=== PATIENT | female | born 1965 | race African-American/Black ===

== ENCOUNTER 2020-09-06 13:08 | Outpatient (NON) | payer BC, SELFPAY ==
[2020-09-06 22:31] LABS: SARS-CoV-2 RNA PCR Positive
== END 2020-09-06 13:09 ==
PROVIDERS: PCP Emergency Medicine; Visit Provider Emergency Medicine
DX: U07.1 COVID-19 (principal)
CPT/HCPCS: 87635; C9803; U0003

== ENCOUNTER 2022-02-28 12:28 | Emergency (ER) | payer BC, SELFPAY ==
[2022-02-28] VITALS (7 sets, daily range): BP systolic 138–174; BP diastolic 88–104; PULSE 78–97; RESP 16–18; O2SAT 95–100
--- NOTE | ~2022-02-28 | XR_ITS ---
EXAMINATION: XR chest 1V portable EXAM DATE: 02/28/2022 13:00 INDICATION: Dyspnea. TECHNIQUE: Portable AP frontal chest x-ray was obtained. There is no prior study for comparison. FINDINGS: Elevated left hemidiaphragm. No confluent consolidation, pneumothorax or pleural effusion s uspected. Cardiomediastinal silhouette is normal. There are no osseous abnormalities identified. IMPRESSION: Elevated left hemidiaphragm. No focal airspace disease. Reviewed, dictated and finalized at location A.
[2022-02-28 12:33] LABS: Glucose Point of Care 490 mg/dl (65-105)
--- NOTE | 2022-02-28 12:39 | ECG_ITS ---
Measurements Intervals [place] Rate: 93 P: 39 MS: 168 QRS: 19 QRSD: 82 T: 64 QT: 361 QTc: 449 Interpretive Statements SINUS RHYTHM POSSIBLE LEFT ATRIAL ENLARGEMENT [-0.1mV P WAVE IN V1/V2] COMPARED TO ECG 03/29/2019 14:48:58 NO SIGNIFICANT CHANGE Electronically Signed On 03-01-2022 6:54:04 CDT by Dora Sharp M.D.
--- NOTE | 2022-02-28 12:40 | ED.GENADULT ---
HPI - General Adult General Chief complaint: Recheck/Abnormal Lab/Rx Stated complaint: high blood sugar Time Seen by Provider: 02/28/22 12:31 Source: RN notes reviewed History of Present Illness HPI narrative: Patient presents emergency department from urgent care for hyperglycemia. Patient states that her blood sugars were running high today states he does not take them regularly. The patient states that she is post be on Metformin but is only been intermittently taking over the past several days she does not like the way it makes her feel she denies having any fevers or chills she states that she does dizzy and has some occasional feelings of shortness of breath she denies any chest pain abdominal pain Related Data Allergies Allergy/AdvReac Type Severity Reaction Status Date / Time aspirin Allergy Mild VOMITING Verified 02/28/22 12:33 oxycodone Allergy Mild VOMITING Verified 02/28/22 12:33 propoxyphene Allergy Mild VOMITING Verified 02/28/22 12:33 ASPERTENE Allergy Unknown MIGRAINE Uncoded 07/11/18 09:17 Review of Systems Review of Systems: Gen.: Denies fevers or chills Eyes: Denies eye pain or visual change ENT: Denies congestion Respiratory: Ports intermittent shortness of breath CV: Denies chest pain or palpitations GI: Denies abdominal pain nausea, emesis or diarrhea Musculoskeletal: Denies back pain or muscle pain Neuro: Denies numbness, tingling, weakness or focal weakness reports dizziness Skin: Denies rash Endocrine: See HPI Except as documented, all other systems reviewed and negative [facility]LY [facility] Past Medical History Medical History Diabetes mellitus Family History Family History Sibling Family history of malignant neoplasm of breast in first degree relative Hypertension, Onset Age: 59 Family history of thoracic aortic aneurysm, Onset Age: 59 Patient's brother is , Onset Age: 59 Mother Hypertension Family history of cardiovascular disease, Onset Age: 87 Father Malignant neoplasm of prostate Other Cerebrovascular accident Diabetes mellitus Family history of arthritis Family history of malignant neoplasm Social History Social History Smoking status: Never smoker Second hand tobacco smoke exposure: No Alcohol intake: never Exam Narrative: APPEARANCE: No acute distress, nontoxic, resting in bed EYES: EOMI HEENT: Normocephalic, atraumatic, OMM RESPIRATORY: No respiratory distress Clear to auscultation bilaterally with no rhonchi wheezing or rales. CARDIOVASCULAR: Regular rate and rhythm without murmurs rubs or gallops. ABDOMINAL: Soft, nontender, nondistended, no rebound or guarding MUSCULOSKELETAl: Moves all extremities. No clubbing, cyanosis or edema. NEURO: Awake and alert. Following commands, speech normal, no focal deficits SKIN:: Warm, dry. No rashes lesions or abrasions PSYCHIATRIC: Normal affect/mood, Course Course Emergency Course: Patient was able to get her medications and she is on Metformin 1000 mg ER at night she states that she does not like taking this as it does cause her to have diarrhea when she is at work and I discussed with the patient taking her medications and I will have her try to take Imodium to see if this does help. Discussed with patient need to take her medications regularly as prescribed Patient will get up and walk to the restroom with no difficulty Discussed with patient results of workup and diagnosis. Discussed need for follow-up with primary care, proper use of medication, and reasons to return to the emergency department. Patient understands and agrees to current treatment plan Vital Signs Vital signs: Vital Signs Respiratory Rate 17 02/28/22 12:31 Pulse Rate 86 02/28/22 15:22 Respiratory Rate 18 02/28/22 15:22 Blood Pressure 153/89 H 04/0
[2022-02-28] MEDS: SODIUM CHLORIDE 0.9% IV 1,000 ML 999 ML IV CONT ×2 (12:53→13:14)
--- NOTE | 2022-02-28 12:55 | PC.NURSE ---
Pt reports dizziness, excessive urination, SOB, and fatigue. States she does not take her metformin consistently due to unpleasant GI side effects. Pt states her s/s began this am. IVF infusing.
[2022-02-28 12:59] LABS: Basophils Percent Auto 0.6 % (0.2-1.2); Eosinophils Percent Auto 0.6 % (0-4.4); Hemoglobin 14.5 g/dL (12.0-15.0); Immature Granulocyte Absolute 0.02 K/mm3 (0.00-0.031); Immature Granulocyte Percent A 0.4 % (0-0.5); Immature Platelet Fraction Pct 8.5 % (0.9-11.2); Lymphocytes Absolute Auto 1.58 K/mm3 (0.9-3.2); Lymphocytes Percent Auto 31.4 % (18.3-44.2); Mean Corpuscular HGB Conc 32.2 g/dl (32-36); Mean Corpuscular Hemoglobin 27.3 pg (26-34); Mean Corpuscular Volume 84.7 fl (80-100); Mean Platelet Volume 13.3 fl (7.4-10.4); Monocytes Absolute Auto 0.3 K/mm3 (0.1-0.6); Monocytes Percent Auto 5.2 % (2.6-8.5); Neutrophils Absolute Auto 3.1 K/mm3 (1.3-6.7); Neutrophils Percent Auto 61.8 % (45.5-73.1); Platelet Count Result 198 k/mm3 (150-375); Red Blood Count 5.31 M/mm3 (4.2-5.4); Red Cell Distribution Width 13.8 % (11.5-14.5)
[2022-02-28 13:01] LABS: Alanine Aminotransferase 21 U/L (4-35); Albumin Level 4.1 g/dL (3.5-5.1); Alkaline Phosphatase 89 U/L (38-126); Anion Gap 10 mmol/L (8-16); Aspartate Amino Transferase 24 U/L (14-36); Bilirubin,Total 0.5 mg/dL (0.2-1.3); Blood Urea Nitrogen 12 mg/dL (7-17); Calcium 8.9 mg/dL (8.4-10.2); Carbon Dioxide 27 mmol/L (22-30); Chloride 97 mmol/L (98-107); Estimated CRCL calculation 108 ml/min; Estimated Glomerular Filt Rate > 60; Glucose 482 mg/dL (65-110); Magnesium 1.5 mg/dL (1.6-2.3); Phosphorus 3.7 mg/dL (2.5-4.5); Potassium 3.6 mmol/L (3.4-5.0); Sodium 134 mmol/L (137-145)
[2022-02-28 13:03] LABS: Beta-Hydroxybutyrate/Acetoacetate 0.11 mmol/L (0.02-0.27)
[2022-02-28 13:07] LABS: Add Urine Microscopic? YES; Appearance Urine Cloudy (Clear); Bilirubin Urine Negative (Negative); Blood Urine 1+ (Negative); Color Urine Yellow (Yellow); Glucose Urine UA 3+ mg/dL (Negative); Ketones Urine Negative (Negative); Leukocyte Esterase Ur Trace LEU/UL (Negative); Mucus Urine Rare /lpf; Nitrate Urine Negative (Negative); Protein Urine Negative (Negative); Squamous Epithelial Cell Urine Moderate /hpf (Few); Urobilinogen Urine Negative mg/dL (<2.0); WBC Urine 0-3 /hpf
[2022-02-28 13:10] LABS: Specific Grav Ur 1.033 (1.001-1.035)
[2022-02-28] MEDS: MAGNESIUM SULF 2 GM/WATER 50ML 2 GM/50 ML BAG IVPB (13:14)
[2022-02-28] MEDS: INSULIN ASPART (*BKC) 100 UNITS/ML 6 UNITS SUB-Q (13:18)
[2022-02-28 14:17] LABS: Glucose Point of Care 399 mg/dl (65-105)
[2022-02-28 15:18] LABS: Glucose Point of Care 318 mg/dl (65-105)
== END 2022-02-28 15:48 | disposition home or self-care (01) ==
PROVIDERS: Emergency Provider Emergency Medicine; PCP Family Medicine
DX: E11.65 Type 2 diabetes mellitus with hyperglycemia (principal); E83.42 Hypomagnesemia; T38.3X6A Underdosing of insulin and oral hypoglycemic [antidiabetic] drugs, initial encounter; Z91.128 Patient's intentional underdosing of medication regimen for other reason; Z79.84 Long term (current) use of oral hypoglycemic drugs
CPT/HCPCS: 36415; 71045; 80053; 81001; 82010; 82948; 83735; 84100; 85025; 85055; 93005; 96361; 96365; 99284; J1815; J3475; J7030

== ENCOUNTER 2022-09-01 14:35 | Emergency (ER) | payer BC, SELFPAY ==
--- NOTE | ~2022-09-01 | US_ITS ---
US breast LT limited 09/01/2022 16:23 Indication: Left breast pain Procedure: High-resolution Limited ultrasound of the left breast Comparison: No prior studies for comparison. Findings: Normal heterogeneous echotexture in the area of left breast pain. No discrete solid or cyst ic mass. Impression: 1: Normal limited ultrasound of the left breast. No sonographic evidence for malignancy. Routine yearly screening mammogram and regular clinical breast examination are recommended. BI-RADS CATEGORY 1 - NEGATIVE Reviewed, dictated and finalized at location A. Impression: 1: Normal limited ultrasound of the left breast. No sonographic evidence for ma lignancy. Routine yearly screening mammogram and regular clinical breast examination are recommended. BI-RADS CATEGORY 1 - NEGATIVE
[2022-09-01 14:38] VITALS: BP 166/90; PULSE 97; RESP 17; TEMP 36.3; O2SAT 100
--- NOTE | 2022-09-01 15:52 | ED.GENADULT ---
HPI - General Adult General Chief complaint: Unspecified <LANI Cheung Last Filed: 09/01/22 19:09> Stated complaint: pains in left breast <LANI Cheung Last Filed: 09/01/22 19:09> Time Seen by Provider: 09/01/22 15:21 <LANI Cheung Last Filed: 09/01/22 19:09> Source: patient <LANI Cheung Last Filed: 09/01/22 19:09> Mode of arrival: ambulatory <LANI Cheung Last Filed: 09/01/22 19:09> Limitations: no limitations <LANI Cheung Last Filed: 09/01/22 19:09> History of Present Illness HPI narrative: Patient is a 57-year-old female who presents to the ED with report of left breast pain. Patient reports having a pain in her left breast from her medial breast to below her nipple. She states the pain has been intermittent over the last 2 weeks. She describes the pain as a shooting pain. She had more frequent episodes of the pain today, which prompted her presentation. Pain can be improved by supporting breast with her hand. Patient has had mammograms in the past which have all been normal. She states she is due for another this year. Patient has not tried anything for pain. Denies any nipple discharge, fevers, rash, wounds, warmth, redness to left breast, chest pain, difficulty breathing, pleuritic pain. <Adalgisa Murcia PA-C - Last Filed: 09/01/22 19:09> Related Data Allergies/adverse reactions: Allergies Allergy/AdvReac Type Severity Reaction Status Date / Time aspirin Allergy Mild VOMITING Verified 02/28/22 12:33 oxycodone Allergy Mild VOMITING Verified 02/28/22 12:33 propoxyphene Allergy Mild VOMITING Verified 02/28/22 12:33 ASPERTENE Allergy Unknown MIGRAINE Uncoded 07/11/18 09:17 <LANI Cheung Last Filed: 09/01/22 19:09> Review of Systems Review of Systems: CONSTITUTIONAL: Denies fever, chills, or sweats. CARDIOVASCULAR: Denies chest pain. RESPIRATORY: Denies cough or dyspnea. GASTROINTESTINAL: Denies abdominal pain, nausea, vomiting. SKIN: Denies rash, wounds, redness to L breast. MUSCULOSKELETAL: Reports left breast pain. NEUROLOGIC: Denies tingling, numbness, or weakness. <Adalgisa Murcia PA-C - Last Filed: 09/01/22 19:09> All systems reviewed & are unremarkable except as noted in HPI and below <Adalgisa Murcia PA-C - Last Filed: 09/01/22 19:09> PMFSH Past Medical History Medical History: Medical History Diabetes mellitus Hepatic steatosis HTN (hypertension), benign Mixed hyperlipidemia <Adalgisa Murcia PA-C - Last Filed: 09/01/22 19:09> Surgical History Surgical History: Surgical History (Updated 09/01/22 @ 15:56 by Adalgisa Murcia PA-C) History of cholecystectomy History of colonoscopy <Adalgisa Murcia PA-C - Last Filed: 09/01/22 19:09> Family History Family History: Family History Sibling Family history of malignant neoplasm of breast in first degree relative Hypertension, Onset Age: 59 Family history of thoracic aortic aneurysm, Onset Age: 59 Patient's brother is , Onset Age: 59 Mother Hypertension Family history of cardiovascular disease, Onset Age: 87 Father Malignant neoplasm of prostate Other Cerebrovascular accident Diabetes mellitus Family history of arthritis Family history of malignant neoplasm <Adalgisa Murcia PA-C - Last Filed: 09/01/22 19:09> Social History Social History: Social History Smoking status: Never smoker Second hand tobacco smoke exposure: No Alcohol intake: never <Adalgisa Murcia PA-C - Last Filed: 09/01/22 19:09> Exam Narrative: GENERAL: Well appearing, well-nourished, non-toxic, in no acute distress. HEAD: Normoce
--- NOTE | 2022-09-01 17:31 | ECG_ITS ---
Measurements Intervals [place] Rate: 68 P: 40 SD: 163 QRS: 17 QRSD: 83 T: 69 QT: 393 QTc: 420 Interpretive Statements SINUS RHYTHM POSSIBLE LEFT ATRIAL ENLARGEMENT [-0.1mV P WAVE IN V1/V2] COMPARED TO ECG 02/28/2022 12:41:20 NO SIGNIFICANT CHANGE Electronically Signed On 09-02-2022 14:50:29 CDT by Rohan Palacios M.D.
[2022-09-01] MEDS: IBUPROFEN 600 MG TABLET PO (17:59)
== END 2022-09-01 18:41 | disposition home or self-care (01) ==
PROVIDERS: Emergency Provider Emergency Medicine; PCP Family Medicine
DX: N64.4 Mastodynia (principal); E11.9 Type 2 diabetes mellitus without complications; I10 Essential (primary) hypertension; E78.2 Mixed hyperlipidemia; R94.31 Abnormal electrocardiogram [ECG] [EKG]
CPT/HCPCS: 76642; 93005; 99284; A9270

== ENCOUNTER 2022-10-02 13:00 | Outpatient (CLI) | payer BC, SELFPAY ==
--- NOTE | ~2022-10-02 | MM_ITS ---
EXAMINATION: MM diagnostic yohana BI w yu HISTORY: Bilateral breast pain TECHNIQUE: ML, MLO and CC 3-D tomosynthesis images of both breasts were performed and synthetic 2-D i mages were generated. CAD analysis was submitted and interpreted. COMPARISON: 09/01/2022 Limited left breast ultrasound BREAST PARENCHYMAL COMPOSITION: There are scattered areas of fibroglandular density. FINDINGS: No suspicious mass or architectural distortion, malignant calcification, skin thickening or retraction is detected. IMPRESSION: 1. No mammographic evidence for malignancy 2. Routine mammographic screening is recommended BI-RADS Category 1: Negative Reviewed, dictated and finalized at location A. REMOVER
== END 2022-10-02 13:01 | disposition home or self-care (01) ==
LOC: ANHIMG 13:01
PROVIDERS: PCP Family Medicine; Visit Provider Emergency Medicine
DX: Z12.31 Encounter for screening mammogram for malignant neoplasm of breast (principal); N64.4 Mastodynia
CPT/HCPCS: 77062; 77066; G0279

== ENCOUNTER 2022-10-06 15:55 | Emergency (ER) | payer BC, SELFPAY ==
[2022-10-06] VITALS (15 sets, daily range): BP systolic 135–162; BP diastolic 75–109; PULSE 72–90; RESP 14–18; TEMP 36.6; O2SAT 92–100
[2022-10-06 16:16] LABS: Glucose Point of Care > 500 mg/dl (65-105)
[2022-10-06 16:40] LABS: Basophils Percent Auto 0.7 % (0.2-1.2); Eosinophils Percent Auto 0.5 % (0-4.4); Hematocrit 43.9 % (37.0-47.0); Hemoglobin 14.7 g/dL (12.0-15.0); Immature Granulocyte Absolute 0.02 K/mm3 (0.00-0.031); Immature Granulocyte Percent A 0.4 % (0-0.5); Immature Platelet Fraction Pct 9.2 % (0.9-11.2); Lymphocytes Absolute Auto 1.44 K/mm3 (0.9-3.2); Mean Corpuscular HGB Conc 33.5 g/dl (32-36); Mean Corpuscular Hemoglobin 27.6 pg (26-34); Mean Corpuscular Volume 82.5 fl (80-100); Mean Platelet Volume 13.5 fl (7.4-10.4); Monocytes Absolute Auto 0.3 K/mm3 (0.1-0.6); Monocytes Percent Auto 5.1 % (2.6-8.5); Neutrophils Absolute Auto 3.7 K/mm3 (1.3-6.7); Neutrophils Percent Auto 67.3 % (45.5-73.1); Platelet Count Result 202 k/mm3 (150-375); Red Blood Count 5.32 M/mm3 (4.2-5.4); Red Cell Distribution Width 13.6 % (11.5-14.5); White Blood Count 5.5 K/mm3 (4.5-10.0)
[2022-10-06 16:54] LABS: Beta-Hydroxybutyrate/Acetoacetate 0.12 mmol/L (0.02-0.27)
[2022-10-06 17:01] LABS: Alanine Aminotransferase 23 U/L (6-35); Albumin Level 4.1 g/dL (3.5-5.1); Alkaline Phosphatase 92 U/L (38-126); Anion Gap 10 mmol/L (8-16); Aspartate Amino Transferase 23 U/L (14-36); Bilirubin,Total 0.5 mg/dL (0.2-1.3); Blood Urea Nitrogen 16 mg/dL (7-17); Calcium 8.6 mg/dL (8.4-10.2); Carbon Dioxide 25 mmol/L (22-30); Chloride 99 mmol/L (98-107); Estimated CRCL calculation 140 ml/min; Estimated Glomerular Filt Rate > 60; Glucose 531 mg/dL (65-110); Magnesium 1.7 mg/dL (1.6-2.3); Phosphorus 3.6 mg/dL (2.5-4.5); Potassium 4.1 mmol/L (3.4-5.0); Sodium 134 mmol/L (137-145)
--- NOTE | 2022-10-06 17:55 | ED.RECABL ---
HPI - Recheck/Abnormal Lab/Rx General Chief Complaint: Recheck/Abnormal Lab/Rx Stated Complaint: high blood sugar Time Seen by Provider: 10/06/22 16:24 History of Present Illness HPI narrative: Patient is a 57-year-old female who presents ER with elevated blood sugars. Patient has not taken her new diabetes medication for the last 4 days because she supposed to take it on an empty stomach but when she wakes up she is too hungry and she has to eat. She has no fevers or chills or sweats. She is having no abdominal pain or nausea or vomiting. No new confusion. Her doctor told her she should be evaluated since her blood sugars have been running in the 400s. Related Data Allergies Allergy/AdvReac Type Severity Reaction Status Date / Time aspirin Allergy Mild VOMITING Verified 02/28/22 12:33 oxycodone Allergy Mild VOMITING Verified 02/28/22 12:33 propoxyphene Allergy Mild VOMITING Verified 02/28/22 12:33 ASPERTENE Allergy Unknown MIGRAINE Uncoded 07/11/18 09:17 Review of Systems Review of Systems: All systems reviewed & are unremarkable except as noted in HPI and below Constitutional: Constitutional: Denies chills, Denies fatigue and Denies fever(s) ENT: Denies nasal congestion and Denies sore throat Cardiovascular: Cardiovascular: Denies chest pain, Denies rapid heart rate and Denies radiating jaw, neck or arm pain Respiratory: Respiratory: Denies cough and Denies dyspnea Gastrointestinal: Gastrointestinal: Denies abdominal pain, Denies nausea and Denies vomiting Genitourinary: Genitourinary: Denies nocturia, Denies dysuria and Denies flank pain [facility] Past Medical History Medical History Diabetes mellitus Hepatic steatosis HTN (hypertension), benign Mixed hyperlipidemia Surgical History Surgical History (Updated 09/01/22 @ 15:56 by Adalgisa Murcia PA-C) History of cholecystectomy History of colonoscopy Family History Family History Sibling Family history of malignant neoplasm of breast in first degree relative Hypertension, Onset Age: 59 Family history of thoracic aortic aneurysm, Onset Age: 59 Patient's brother is , Onset Age: 59 Mother Hypertension Family history of cardiovascular disease, Onset Age: 87 Father Malignant neoplasm of prostate Other Cerebrovascular accident Diabetes mellitus Family history of arthritis Family history of malignant neoplasm Social History Social History Smoking status: Never smoker Second hand tobacco smoke exposure: No Alcohol intake: never Exam Narrative: GENERAL: Well-appearing, well-nourished, and in no acute distress. HEAD: Normocephalic, atraumatic. CHEST: Clear to auscultation. No respiratory distress. HEART: Regular rate and rhythm. Normal peripheral pulses. ABDOMEN: Soft, nontender, nondistended. EXTREMITIES: Normal range of motion. No edema. SKIN: Warm, dry, no rash. NEURO: Alert and oriented x3. PSYCH: Normal mood and affect. Course Course Emergency Course: Patient hydrated. Discharge home. Recommend she take her medication if she wants to control her hyperglycemia. Offered strategies which to take her medication properly. Vital Signs Vital signs: Vital Signs Temperature 97.9 F 10/06/22 16:03 Pulse Rate 90 10/06/22 16:03 Respiratory Rate 14 10/06/22 16:03 Blood Pressure 155/89 H 10/06/22 16:03 Pulse Oximetry 99 10/06/22 16:03 Oxygen Delivery Room Air 10/06/22 16:03 Temperature 97.9 F 10/06/22 16:03 Pulse Rate 75 10/06/22 18:17 Respiratory Rate 17 10/06/22 18:17 Blood Pressure 154/84 H 10/06/22 18:17 Pulse Oximetry 99 10/06/22 18:17 Oxygen Delivery Room Air 10/06/22 16:03 MDM - Recheck/Abnormal Lab/Rx Lab Data Result diagrams: 10/06/22 16:30 10/06/22
[2022-10-06] MEDS: SODIUM CHLORIDE 0.9% IV 1,000 ML 999 ML IV CONT (18:17)
--- NOTE | 2022-10-06 19:24 | PC.NURSE ---
Per Pt, she checked her blood sugar on her free style and it was 362. Will notified Dr Mc of the new POC.
== END 2022-10-06 19:48 | disposition home or self-care (01) ==
PROVIDERS: Emergency Provider Emergency Medicine; PCP Family Medicine
DX: E11.65 Type 2 diabetes mellitus with hyperglycemia (principal); I10 Essential (primary) hypertension; T38.3X6A Underdosing of insulin and oral hypoglycemic [antidiabetic] drugs, initial encounter; Z91.138 Patient's unintentional underdosing of medication regimen for other reason; E78.2 Mixed hyperlipidemia
CPT/HCPCS: 36415; 80053; 82010; 82948; 83735; 84100; 85025; 85055; 96360; 99283; J7030

== ENCOUNTER 2024-02-13 18:57 | Emergency (ER) | payer OTHER, SELFPAY ==
--- NOTE | ~2024-02-13 | XR_ITS ---
EXAM: XR wrist LT min 3V DATE: 02/13/2024 19:26 HISTORY: left wrist pain . COMPARISON: None available. FINDINGS: Normal mineralization. No acute fracture or dislocation. Old ulnar styloid fracture fragme nt. No lytic or blastic lesion. Ulnar negative variance. Degenerative change at the DRUJ. No erosion or periosteal change. Soft tissue swelling about the wrist. IMPRESSION: No acute osseous finding in the left wrist. Reviewed, dictated and finalized at location K.
[2024-02-13 18:58] VITALS: BP 200/97; PULSE 98; RESP 19; TEMP 36.5; O2SAT 97
--- NOTE | 2024-02-13 19:21 | ED.UPPEXIN ---
HPI - Extremity Injury (Upper) General Chief Complaint: Extremity Injury, Upper Stated Complaint: left wrist pain Time Seen by Provider: 02/13/24 19:13 Source: patient Mode of arrival: ambulatory Limitations: no limitations History of Present Illness HPI narrative: This is a 58 year old female that presents to the ER for left wrist pain. Ongoing over the last 4 days. No known injury or trauma. Patient has not taken anything for pain. Reports some swelling to the area. Reports decreased ROM due to pain. Denies fevers, erythema or numbness. Related Data Home Medications Medication Instructions Recorded Confirmed semaglutide 14 mg tablet (Rybelsus) 14 mg PO DAILY 03/31/23 03/31/23 Allergies Allergy/AdvReac Type Severity Reaction Status Date / Time aspirin Allergy Mild VOMITING Verified 02/13/24 19:08 oxycodone Allergy Mild VOMITING Verified 02/13/24 19:08 propoxyphene Allergy Mild VOMITING Verified 02/13/24 19:08 maple surpy Allergy Severe Vomiting Uncoded 02/13/24 19:08 ASPERTENE Allergy Unknown MIGRAINE Uncoded 02/13/24 19:08 Review of Systems Review of Systems: CONSTITUTIONAL: Denies fever MUSCULOSKELETAL: Reports joint pain, and myalgia. NEUROLOGIC: Denies numbness All systems reviewed & are unremarkable except as noted in HPI and below PMFSH Past Medical History Medical History (Updated 02/13/24 @ 20:56 by Mariola Soares PA-C) Diabetes mellitus Hepatic steatosis HTN (hypertension), benign Mixed hyperlipidemia Surgical History Surgical History (Updated 03/31/23 @ 08:50 by Veronica Downey MA) Delivery by section History of cholecystectomy History of colonoscopy History of hysteroscopy fibroids removed Family History Family History Sibling Family history of malignant neoplasm of breast in first degree relative Hypertension, Onset Age: 59 Family history of thoracic aortic aneurysm, Onset Age: 59 Patient's brother is , Onset Age: 59 Mother Hypertension Family history of cardiovascular disease, Onset Age: 87 Father Malignant neoplasm of prostate Other Cerebrovascular accident Diabetes mellitus Family history of arthritis Family history of malignant neoplasm Social History Social History (Updated 03/31/23 @ 08:51 by Veronica Downey MA) Smoking status: Never smoker Second hand tobacco smoke exposure: No Alcohol intake: never Substance use: never Substance use type: does not use Living arrangements: with family Occupation/Education: occupation Gender identity (if verbalized by the patient): Female Sexual Orientation (if Verbalized by the Patient): Straight or Heterosexual Exam Narrative: GENERAL: Well-appearing, well-nourished, and in no acute distress. HEAD: Normocephalic, atraumatic. EYES: EOMI. EXTREMITIES: Decreased active ROM in the left wrist due to pain. No erythema or warmth. Mild edema about the left wrist dorsal surface. Normal radial pulse. Normal sensation SKIN: Warm, dry, no rash. NEURO: No focal deficits. Alert and oriented x3. PSYCH: Normal mood and affect Course Course Emergency Course: Patient updated on her workup and agrees with plan of care Vital Signs Vital signs: Vital Signs Temperature 97.7 F 02/13/24 18:58 Pulse Rate 98 02/13/24 18:58 Respiratory Rate 19 02/13/24 18:58 Blood Pressure 200/97 H 02/13/24 18:58 Pulse Oximetry 97 02/13/24 18:58 Oxygen Delivery Room Air 02/13/24 18:58 Temperature 97.7 F 02/13/24 18:58 Pulse Rate 91 02/13/24 20:15 Respiratory Rate 16 02/13/24 20:15 Blood Pressure 178/99 H 02/13/24 20:15 Pulse Oximetry 99 02/13/24 20:15 Oxygen Delivery Room Air 02/13/24 18:58 MDM - Extremity Injury (Upper) MDM Narrative Medical decision making narrative: Patient presents to the emergency department for left wrist pain ongoing over the last 4 days. She is afebrile and
[2024-02-13] MEDS: ACETAMINOPHEN 500 MG TABLET 1000 MG PO (19:24)
[2024-02-13] MEDS: KETOROLAC 30 MG/ML VIAL (*BKC) IM (19:25)
[2024-02-13 20:00] LABS: Basophils Percent Auto 0.3 % (0.2-1.2); Eosinophils Percent Auto 0.7 % (0-4.4); Hematocrit 42.1 % (37.0-47.0); Hemoglobin 13.6 g/dL (12.0-15.0); Immature Granulocyte Absolute 0.02 K/mm3 (0.00-0.031); Immature Granulocyte Percent A 0.3 % (0-0.5); Immature Platelet Fraction Pct 6.3 % (0.9-11.2); Lymphocytes Absolute Auto 1.69 K/mm3 (0.9-3.2); Lymphocytes Percent Auto 29.3 % (18.3-44.2); Mean Corpuscular HGB Conc 32.3 g/dl (32-36); Mean Corpuscular Hemoglobin 26.8 pg (26-34); Mean Corpuscular Volume 82.9 fl (80-100); Mean Platelet Volume 13.3 fl (7.4-10.4); Monocytes Absolute Auto 0.3 K/mm3 (0.1-0.6); Monocytes Percent Auto 5.4 % (2.6-8.5); Neutrophils Absolute Auto 3.7 K/mm3 (1.3-6.7); Platelet Count Result 193 k/mm3 (150-375); Red Blood Count 5.08 M/mm3 (4.2-5.4); Red Cell Distribution Width 14.1 % (11.5-14.5); White Blood Count 5.8 K/mm3 (4.5-10.0)
[2024-02-13 20:10] LABS: Alanine Aminotransferase 19 U/L (6-35); Albumin Level 3.9 g/dL (3.5-5.1); Alkaline Phosphatase 77 U/L (38-126); Anion Gap 7 mmol/L (8-16); Aspartate Amino Transferase 18 U/L (14-36); Bilirubin,Total 0.3 mg/dL (0.2-1.3); Blood Urea Nitrogen 17 mg/dL (7-17); Calcium 8.9 mg/dL (8.4-10.2); Carbon Dioxide 25 mmol/L (22-30); Chloride 101 mmol/L (98-107); Estimated CRCL calculation 122 ml/min; Estimated Glomerular Filt Rate > 60; Glucose 409 mg/dL (65-110); Potassium 3.9 mmol/L (3.4-5.0); Sodium 133 mmol/L (137-145)
[2024-02-13 20:15] VITALS: BP 178/99; PULSE 91; RESP 16; O2SAT 99
[2024-02-13 20:18] LABS: Platelet Estimate Adequate (Adequate)
[2024-02-13 20:19] LABS: Schistocytes None Seen
[2024-02-13] MEDS: amLODIPine BESYLATE 5 MG TABLET 10 MG PO (20:22)
[2024-02-13 20:32] LABS: Erythrocyte Sedimentation Rate 20 mm/hr (0-20)
[2024-02-13 20:35] LABS: CRP 0.8 mg/dL (<1.0)
[2024-02-13] MEDS: COLCHICINE 0.6 MG TABLET 1.2 MG PO (21:00)
[2024-02-13] MEDS: COLCHICINE 0.6 MG TABLET PO (21:59)
[2024-02-13 22:00] VITALS: BP 161/94; PULSE 78; RESP 16; O2SAT 100
== END 2024-02-13 22:05 | disposition home or self-care (01) ==
PROVIDERS: Emergency Provider Physician Assistant; PCP Family Medicine
DX: M25.532 Pain in left wrist (principal); I10 Essential (primary) hypertension; E11.9 Type 2 diabetes mellitus without complications; E78.2 Mixed hyperlipidemia; Z90.49 Acquired absence of other specified parts of digestive tract; Z79.84 Long term (current) use of oral hypoglycemic drugs
CPT/HCPCS: 36415; 73110; 80053; 84550; 85025; 85055; 85652; 86140; 96372; 99283; A9270; J1885

== ENCOUNTER 2024-10-24 09:30 | Outpatient (RCR) | payer OTHER, SELFPAY | END 2024-12-04 10:14 | disposition home or self-care (01) | LOC: ANHDMC 09:30 | PROVIDERS: PCP Family Medicine | DX: E11.65 Type 2 diabetes mellitus with hyperglycemia (principal); Z79.4 Long term (current) use of insulin; Z71.89 Other specified counseling | CPT/HCPCS: G0108 ==

== ENCOUNTER 2024-12-15 16:30 | Emergency (ER) | payer OTHER, SELFPAY ==
--- NOTE | ~2024-12-15 | CT_ITS ---
Cervical spine History: Fall PROCEDURE: CT cervical spine without intravenous contrast. COMPARISON: None TECHNIQUE: Multiple contiguous axial images of the cervical spine were performed without the administration of i ntravenous contrast. DLP: 491 mGy-cm FINDINGS: Straightening and slight reversal of the normal curvature of the cervical spine is identified, likely muscular in origin. No acute fractures are present. The bilateral lung apices are unremarkable. No soft tissue abnormality is present. The airway is patent. Bifid posterior spinous process incidentally noted at the levels of C7 and T1. Impression: Straightening and slight reversal of the normal curvature of the cervical spine, likely muscular in o rigin. No acute fracture. Reviewed, dictated and finalized at location A. RETTE INSPECTOR Impression: Straightening and slight reversal of the normal curvature of the cervical spine , likely muscular in origin. No acute fracture.
--- NOTE | ~2024-12-15 | XR_ITS ---
HISTORY: PT FELL DOWN THE STAIRS 5 DAYS AGO COMPARISON: None TECHNIQUE: 2 views of the right hip along with an AP view of the pelvis FINDINGS: No acute fracture or dislocation is identified. Superior lateral sclerosis of the femoral acetabular joint space is present consistent with osteoarth ritis. Degenerative disease within the pubic symphysis, with sclerosis identified. Multiple phleboliths within the pelvis. Normal mineralization. IMPRESSION: Trace degenerative disease without acute fracture or dislocation. Reviewed, dictated and finalized at location A. ILLON DEBEADER
--- NOTE | ~2024-12-15 | CT_ITS ---
History: Fall PROCEDURE: CT thoracic and lumbar spine without intravenous contrast. COMPARISON: None TECHNIQUE: Multiple contiguous axial images of the thoracic and lumbar spine were performed without the administ ration of intravenous contrast. DLP: 2142 mGy-cm FINDINGS: Straightening of the normal lordotic curvature of the lumbar spine is identified, possibly muscular i n origin. Preservation of the normal curvature of the thoracic spine. No acute compression fractures are present. No soft tissue abnormality is noted. Within the retroperitoneum: The gallbladder is surgically absent. The uterus is enlarged and nodular. Normal appendix. Fatty atrophy of the pancreas. Small hiatal hernia. Impression: Straightening of the normal lordotic curvature of the lumbar spine, likely muscular in origin. Preservation of the normal curvature of the thoracic spine No acute compression fracture. Reviewed, dictated and finalized at location A. Y MAN Impression: Straightening of the normal lordotic curvature of the lumbar spine, likely musc ular in origin. Preservation of the normal curvature of the thoracic spine No acute compression fracture.
--- OUTSIDE RECORDS SUMMARY | 2024-12-15 16:33 | XMS_ITS | Clinical Summary ---
Author Organization [facility] Address [address] [place] [address]. 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 Name Role Phone Ricci Parker MD Primary Care Provider [phone] Allergies Active Allergy Reactions Criticality Noted Date Comments Aspartame Headache Low 01/01/2022 Aspirin Headache,Vomiting Low 10/10/2015 Headache Oxycodone Headache Low 10/10/2015 Headache Propoxyphene Vomiting,Headache Low 10/10/2015 Headache Medications No known medications Social History Tobacco Use Types Packs/Day Years Used Date Smoking Tobacco: Never Smokeless Tobacco: Never Tobacco Cessation:Counseling Given: Not Answered Alcohol Use Standard Drinks/Week Comments Never 0 (1 standard drink = 0.6 oz pur e alcohol) Comments No Sex and Gender Information Value Date Recorded Sex Assigned at Not on file Legal Sex Female 6:47 PM CDT Gender Identity Not on file Sexual Orientation Not on file Last Filed Vital Signs Vital Sign Reading Time Taken Comments Blood Pressure 198/98 08/16/2024 1:45 PM CDT Pulse 79 08/16/2024 1:45 PM CDT Temperature 36.7 ??C (98 ??F) 08/16/2024 10:18 AM CDT Respiratory Rate 18 08/16/2024 10:18 AM CDT Oxygen Saturation 99% 08/16/2024 1:45 PM CDT Inhaled Oxygen Concentration - - Weight 113.4 kg (250 lb) 08/16/2024 10:18 AM CDT Height 182.9 cm (6') 08/16/2024 10:18 AM CDT Body Mass Index 33.91 08/16/2024 10:18 AM CDT Plan of Treatment Health Maintenance Due Date Last Done Comments Cervical Cancer Screening Pa p Smear (Age 30 to 64) Every 3 Years 1964 Colorectal Cancer Screening Colonoscopy (10 Years) 1964 Kidney Health Evaluation 1964 Lipid Panel 1964 Annual Physical 1967 Pneumococcal Vaccine: Pediatrics (0 to 5 Years) and At-Risk Patients (6 to 64 Years) (1 of 2 - PCV) 1970 Diabetes: Retinopathy Eye Exam 1982 Hepatitis C 1982 DTaP, Tdap and Td Vaccines ( 1 - Tdap) 1983 Cervical Cancer Screening Pa p with HPV Testing (Age 30 to 64) Every 5 Years 1994 Cervical Cancer Screening wi th HPV 1994 Zoster Vaccines (1 of 2) 2014 Hemoglobin A1C 06/06/2024 03/07/2024, 09/02/2022, 01/01/2022 COVID-19 Vaccine (3 - 2023-2 5 season) 2024 03/08/2021, 02/15/2021 Influenza Adult (#1) 2024 08/22/2022, 11/22/2017 Mammogram Screening 10/02/2024 10/02/2022, 11/17/2013 RSV Immunization or 60+ Years (1 - 1-dose 75+ series) 2039 Meningococcal Vaccine Aged Out No valorie leonard eligible based on patient's age to complete this topic RSV Immunizations Under 20 Months Aged Out No longer eligible b ased on patient's age to complete this topic Insurance [employer] [facility] Care Teams Speech Pathology Teacher Relationship Specialty Start Date End Date Ricci Parker MD [address] [place] [id number] PCP - General FAMILY PRACTICE 08/16/24
--- OUTSIDE RECORDS SUMMARY | 2024-12-15 16:33 | XMS_ITS | Referral Summary ---
Author Organization [facility] Address [address] [place] [address] Care Team Providers Care Wool Mixer Name Role Phone Ricci Parker MD Primary Care Provider [phone] Encounters Date Type Department Care Team Description 12/15/2024 Nurse Triage [facility] Medical [facility] Family Medicine at [address] [place] [phone] Ricci Parker MD 12/11/2024 Telephone [facility] Family Medicine at [address] [place] [phone] Ricci Parker MD Med Refill 12/08/2024 Telephone [facility] Family Medicine at [address] [place] [phone] Ricci Parker MD 12/07/2024 8:07 AM INTERIM CONTROLLER - 12/07/2024 11:59 PM INTERIM CONTROLLER Hospital Encounter [facility] [address] [place] [id number] Type 2 diabetes mellitus with hyperglycemia, with long-term current use of insulin (HCC) Discharge Disposition: Discharge to home or self care 12/07/2024 2:45 PM INTERIM CONTROLLER Office Visit [facility] Medical [facility] Family Medicine at [address] [place] [address] Ricci Parker MD Type 2 diabetes mellitus with hyperglycemia, with long-term current use of insulin (HCC) (Primary Dx); Essential hypertension; Mixed hyperlipidemia 11/17/2024 Telephone [facility] Family Medicine at [address] [place] [phone] Ricci Parker MD Med Refill 11/02/2024 Telephone [facility] Family Medicine at [address] [place] [address] Ricci Parker MD Medication Request 10/24/2024 Orders Only [facility] Gastroenterology at [address] [place] [phone] Willie Matthews MD Screening for colon cancer (Primary Dx) 10/05/2024 Telephone [facility] Family Medicine at [address] [place] [phone] Ricci Parker MD Med Refill 10/03/2024 Orders Only [facility] Gastroenterology at [address] [place] [phone] Willie Matthews MD 10/03/2024 Orders Only [facility] Gastroenterology at [address] [place] [phone] Willie Matthews MD Colon cancer screening (Primary Dx) 09/22/2024 9:56 AM CDT - 09/22/2024 11:59 PM CDT Hospital Encounter [facility] Nutrition and Diabetic Education 1 [facility] Room [address] [address] Rhoda Mcfadden, RN Type 2 diabetes mellitus with hyperglycemia, with long-term current use of insulin (HCC) Discharge Disposition: Discharge to home or self care 09/20/2024 10:00 AM CDT Clinical Support [facility] Medical [facility] Family Medicine at [address] [phone] Essential hypertension (Primary Dx) from Last 3 Months Allergies Active Allergy Reactions Criticality Noted Date Comments Aspartame Headache Low 01/01/2022 Aspirin Vomiting,Headache Low 10/10/2015 Headache Propoxyphene-Acetaminophen Vomiting Low 9 Oxycodone Headache Low 10/10/2015 Headache Propoxyphene Headache Low 10/10/2015 Headache Oxycodone-Acetaminophen Headache Low 05/10/2019 Medications clobetasoL (TEMOVATE) 0.05 % ointment 4 Active pen needle, diabetic 31 gauge x 04/06 needleIndication s:Type 2 diabetes mellitus with hyperglycemia, with long-term current use of insulin ([facility]) Use to inject 1 time daily as directed. 100 each 1 4 Active amLODIPine (NORVASC) 10 mg tabletIndication s:hypertension Take 1 tablet (10 mg total) by mouth nightly 90 tablet 1 4 Active hydroCHLOROthiaz azeem 12.5 mg tabletIndication s:Essential hypertension Take 1 tablet (12.5 mg total) by mouth daily 90 tablet 1 4 Active bisacodyl EC (DULCOLAX EC) 5 mg EC tabletIndication s:constipation Take 1 tablet (5 mg total) by mouth daily 8 tablet 4 Active OneTouch Verio test strips strip Use to test blood sugar up to twice daily 200 strip 1 4 Active sod sulf-pot chloride-mag sulf (Sutab) 1.479-0.188- 0.225 gram tabletIndication s:Screening for colon cancer Take 12 tablets by mouth 2 (two) times a day Take as directed by GI office 24 tablet 4 Active semaglutide (Rybelsus) 7 mg tabletIndication s:type 2 diabetes mellitus Take 1 tablet (7 mg total) by mouth daily before breakfast 30 tablet 5 4 Active insulin glargine 100 unit/mL (3 mL) pen for injectionIndicat ions:Type 2 diabetes mellitus with hyperglycemia, without long-term current use of insulin ([facility]) Inject 28 Units under the skin nightly 15 mL 5 4 Active rosuvastatin (CRESTOR) 5 mg tablet Take 1 tablet (5 mg total) by mouth daily 30 tablet 11 5 12/07/19 26 Active dapagliflozin propanediol (FARXIGA) 10 mg tabletIndication s:Type 2 diabetes mellitus with hyperglycemia, with long-term current use of insulin ([facility]) Take 1 tablet (10 mg total) by mouth daily 90 tablet 3 5 Active blood-glucose sensor deviceIndication s:Type 2 diabetes mellitus with hyperglycemia, without long-term current use of insulin ([facility]) Check blood sugar 3-4 times daily, change every 15 days 2 each 11 5 Active insulin glargine 100 unit/mL (3 mL) pen for injectionIndicat ions:Type 2 diabetes mellitus with hyperglycemia, without long-term current use of insulin ([facility]) Inject 28 Units under the skin nightly 15 mL 5 4 11/17/20 24 Discontin ued(Reord er) dapagliflozin propanediol (FARXIGA) 10 mg tabletIndication s:Type 2 diabetes mellitus with hyperglycemia, with long-term current use of insulin ([facility]) Take 1 tablet (10 mg total) by mouth daily 90 tablet 3 4 12/13/19 25 Discontin ued(Reord er) blood-glucose sensor device As directed 1 each 2 5 12/13/19 25 Discontin ued(Alter sekou therapy) blood-glucose sensor deviceIndication s:Type 2 diabetes mellitus with hyperglycemia, without long-term current use of insulin ([facility]) Check blood sugar 3-4 times daily change every 15 day 2 each 11 5 12/13/19 25 Discontin ued(Dupli clarissa order) Active Problems Problem Noted Date Diagnosed Date Screening for colon cancer 10/24/2024 Colon cancer screening 10/03/2024 Mixed hyperlipidemia 09/06/2024 Assessment & Plan (09/06/2024 9:26 AM CDT): Not. At goal Lab Results Component Value Date CHOL 215 (H) 10/06/2023 CHOL 234 (H) 09/02/2022 CHOL 228 (H) 01/01/2022 Lab Results Component Value Date HDL 59 10/06/2023 HDL 56 09/02/2022 HDL 49 01/01/2022 Lab Results Component Value Date LDLCALC 159 (H) 09/02/2022 LDLCALC 159 (H) 01/01/2022 LDL 139 (H) 10/06/2023 Lab Results Component Value Date TRIG 75 10/06/2023 TRIG 94 09/02/2022 TRIG 100 01/01/2022 Repeat lipid panel Goal LDL below 70 Discussed starting low-dose statin while in office. We will hold off until lab results Hot flashes due to menopause 09/06/2024 Assessment & Plan (09/06/2024 9:26 AM CDT): New problem, New Rx for reveals a sent to pharmacy No samples available in today Essential hypertension 12/22/2023 Assessment & Plan (09/06/2024 9:20 AM CDT): Not at goal BP Readings from Last 1 Encounters: 09/06/24 154/82 BP Goal: <64yo: <130/90, 65>: 140/90 Increase amlodipine to 10mg HS and add HCTZ 12.5mg in AM Assessment & Plan (08/17/2024 11:36 AM CDT): Severe exacerbation D/t symptomatic recommend ER evaluation Pt feels unable to safely get to ER on her own. Pt is going to have sister take her to ER. Offered 911 services but pt would prefer sister transport. Sister 10min ETA. Given 0.2mg clonidine while waiting for sister to arrive. Given 1112 Escorted to car at 1135 Attempted to call report to ER x2 with no answer Assessment & Plan (12/22/2023 9:33 AM INTERIM CONTROLLER): This is a chronic condition which is not at goal of less than 140/90 even after 5 minutes of rest Personally reviewed labs. Continue amlodipine, benazepril Encouraged to monitor weight and B/P at home Encouraged to take medications as prescribed. Class 1 obesity due to exces s calories with serious comorbidity and body mass index (BMI) of 33.0 to 33.9 in adult 11/04/2023 Assessment & Plan (09/06/2024 9:21 AM CDT): Not at goal Wt Readings from Last 3 Encounters: 09/06/24 115 kg (253 lb 9.6 oz) 08/17/24 111.6 kg (246 lb 0.5 oz) 08/17/24 111.7 kg (246 lb 4.8 oz) Discussed starting CHIP program Refer to nurse educator as well Assessment & Plan (12/22/2023 9:32 AM INTERIM CONTROLLER): This is a chronic condition which is improving 5 lb weight loss since last office visit Encouraged healthy eating and exercise Assessment & Plan (11/04/2023 2:18 PM INTERIM CONTROLLER): This is a chronic condition which is worsening 10 lb weight gain since last office visit Did not tolerate mounjaro due to nausea Will start Rybelsus 7 mg- take 30 minutes prior to food 1st thing in the morning with 4 oz of water Type 2 diabetes mellitus wit h hyperglycemia, with long-term current use of insulin 07/08/2022 Assessment & Plan (09/06/2024 9:20 AM CDT): Not at goal Lab Results Component Value Date HGBA1C 14.7 (H) 08/17/2024 Continue Rybelsus 7mg daily, insulin glargine 28 units HS, Farxiga 10mg daily Continue daily glucose checks Refer to nurse educator Assessment & Plan (08/17/2024 11:29 AM CDT): Severe exacerbation POC 430 Advise ER d/t symptomatic and concern for DKA and hypertensive crisis Pt feels unable to safely get to ER on her own. Pt is going to have sister take her to ER. Offered 911 services but pt would prefer sister transport. Sister 10min ETA. Assessment & Plan (12/22/2023 9:31 AM INTERIM CONTROLLER): This is a chronic condition which is improving but not at goal of less than 7%. Personally reviewed most recent A1c - Lab Results Component Value Date HGBA1C 10.7 12/22/2023 Personally reviewed POC blood sugar- not at goal 80-180 Lab Results Component Value Date POCGLU 220 12/22/2023 Medication- increase Lantus 28 units daily, increase Rybelsus 14mg daily. - denies history of pancreatitis or thyroid cancer, continue Farxiga 10mg daily. Did not tolerate mounjaro- nauseated and made her feel Monitor blood sugar 3 times a day or continuously with sensor. Encouraged annual eye exam. Monofilament foot exam completed. protective senses intact Personally reviewed CMP eGFR- 85 Kidney function- abnormal Urine microalbumin/creatinine ratio - at goal <30 treated with amlodipine/benazepril B/P today- not at goal of <140/90 even after 5 minutes of rest continue amlodipine, benazepril Personally reviewed lipid panel. Not at Goal of less than 70. Continue rosuvastatin Assessment & Plan (11/04/2023 2:15 PM INTERIM CONTROLLER): This is a chronic condition which is out of control improving per her freestyle angela 3, not at goal of less than 7%. GMI per freestyle Angela 3 shows a decrease to 11.2 Personally reviewed most recent A1c - Lab Results Component Value Date HGBA1C 12.1 09/23/2023 Personally reviewed POC blood sugar- not at goal 80-180 Lab Results Component Value Date POCGLU 294 11/04/2023 Medication- increase Lantus 28 units daily, re-start Rybelsus 7mg daily. - denies history of pancreatitis or thyroid cancer, continue Farxiga 10mg daily. Stop mounjaro as it made her nauseated and made her feel Monitor blood sugar continuously with freestyle angela 3 sensor. Encouraged annual eye exam. Monofilament foot exam completed. protective senses intact Personally reviewed CMP eGFR- 85 Kidney function- normal Urine microalbumin/creatinine ratio - at goal <30 treated with amlodipine/benazepril B/P today- not at goal of <140/90. continue amlodipine/benazepril Personally reviewed lipid panel. Not at Goal of less than 70. Continue rosuvastatin Assessment & Plan (09/23/2023 2:47 PM CDT): This is a chronic condition which is out of control , worsening not at goal of less than 7%. Personally reviewed most recent A1c - Lab Results Component Value Date HGBA1C 12.1 09/23/2023 Personally reviewed POC blood sugar- not at goal 80-180 Lab Results Component Value Date POCGLU 222 09/23/2023 Medication- increase Lantus 24 units daily, re-start mounjaro 2.5mg weekly- denies history of pancreatitis or thyroid cancer, continue Farxiga 10mg daily. Monitor blood sugar 2 times a day. Continuously with MobiDoughstyle angela 3 sensor. Encouraged annual eye exam. Monofilament foot exam completed. protective senses intact Personally reviewed CMP eGFR- 85 Kidney function- normal Urine microalbumin/creatinine ratio - at goal <30 treated with Amlodipine/ benazepril B/P today- at goal of <140/90. continue Amlodipine/ benazepril Personally reviewed lipid panel. Not at Goal of less than 70. Continue rosuvastatin Assessment & Plan (02/15/2023 2:18 PM CDT): This is a chronic condition which is inadequately controlled, Improving, not at goal of less than 7%. Personally reviewed most recent A1c - Lab Results Component Value Date HGBA1C 9.0 02/15/2023 Personally reviewed POC blood sugar- not at goal 80-180 Lab Results Component Value Date POCGLU 195 02/15/2023 Medication- increase Rybelsus 7mg daily, encouraged to start Farxiga farxiga 10mg daily Explained potential side effects or urinary tract and yeast infection. Explained Farxiga actually can provide kidney protection from the effects of diabetes. Monitor blood sugar 2x daily Encouraged annual eye exam. Monofilament foot exam completed. protective senses intact Urine microalbumin/creatinine ratio - at goal <30 not treated with JOSELUIS/ARB, treated with amlodipine. Personally reviewed CMP GFR- 102 Kidney function- normal B/P today- at goal of <140/90 Not treated with JOSELUIS/ARB. Treated with amlodipine. Personally reviewed lipid panel. Not at Goal of less than 70. Continue rosuvastatin Assessment & Plan (12/31/2022 10:49 AM INTERIM CONTROLLER): This is a chronic condition which is improving, but not at goal of less than 7%. Improving blood sugars per fingersticks Personally reviewed most recent A1c - Lab Results Component Value Date HGBA1C 12.4 11/18/2022 Personally reviewed POC blood sugar- 247, not at goal 80-180 Medication- Continue Rybelsus 7mg daily, encouraged to start Farxiga farxiga 10mg daily Explained potential side effects or urinary tract and yeast infection. Explained Farxiga actually can provide kidney protection from the effects of diabetes. Monitor blood sugar 2x daily Encouraged annual eye exam. Monofilament foot exam completed. protective senses intact Urine microalbumin/creatinine ratio - at goal <30 not treated with JOSELUIS/ARB, treated with amlodipine. Personally reviewed CMP GFR- 102 Kidney function- normal B/P today- at goal of <140/90 after 5 minutes of rest. Not treated with JOSELUIS/ARB. Treated with amlodipine. Personally reviewed lipid panel. Not at Goal of less than 70. Continue rosuvastatin Assessment & Plan (11/18/2022 1:10 PM INTERIM CONTROLLER): This is a chronic condition which is out of control, worsening, not at goal of less than 7%. Personally reviewed most recent A1c - Lab Results Component Value Date HGBA1C 12.4 11/18/2022 Personally reviewed POC blood sugar- Lab Results Component Value Date POCGLU 400 11/18/2022 not at goal 80-180 Reports drink 8oz of cranberry juice prior to her appt. Discussed stopping sugary drinks. Encouraged to drink water, black coffee, plain tea only. Discussed healthy snack replacements such as fruit, nuts and cheese Medication- Continue Rybelsus 7mg daily, farxiga 10mg daily Encouraged to set Rybelsus at bedside with a 4oz glass of water and take the medication as soon as she rises. Monitor blood sugar continuously with sensor. Umanzor pay. Provided samples of Freestyle angela 3 Encouraged annual eye exam. Monofilament foot exam completed. protective senses intact Urine microalbumin/creatinine ratio - at goal <30 not treated with JOSELUIS/ARB, treated with amlodipine. Personally reviewed CMP GFR- 102 Kidney function- normal B/P today- at goal of <140/90 after 5 minutes of rest. Not treated with JOSELUIS/ARB. Treated with amlodipine. Personally reviewed lipid panel. Not at Goal of less than 70. Continue rosuvastatin Vaginal burning 05/10/2019 Benign neoplasm of soft tissues 04/07/2014 Overview (02/25/2017): Leiomyoma Resolved Problems Problem Noted Date Diagnosed Date Resolved Date Mixed diabetic hyperlipidemi a associated with type 2 diabetes mellitus 11/18/2022 05/16/2024 Assessment & Plan (12/22/2023 9:32 AM INTERIM CONTROLLER): This is a chronic condition which is not at goal of LDL less than 70 Continue rosuvastatin Encouraged to eat healthy, include fresh fruits and vegetables daily and avoid eating fried foods more than once per week. Encouraged to take medications as prescribed. Assessment & Plan (11/04/2023 2:15 PM INTERIM CONTROLLER): This is a chronic condition which is not at goal of LDL less than 70 Continue rosuvastatin Encouraged to eat healthy, include fresh fruits and vegetables daily and avoid eating fried foods more than once per week. Encouraged to take medications as prescribed. Assessment & Plan (09/23/2023 2:48 PM CDT): This is a chronic condition which is at goal of LDL less than 70 Continue rosuvatation. Encouraged to eat healthy, include fresh fruits and vegetables daily and avoid eating fried foods more than once per week. Encouraged to take medications as prescribed. Assessment & Plan (02/15/2023 2:18 PM CDT): This is a chronic condition which is not at goal of LDL less than 70 Continue rosuvastatin Encouraged to eat healthy, include fresh fruits and vegetables daily and avoid eating fried foods more than once per week. Encouraged to take medications as prescribed. Assessment & Plan (12/31/2022 9:58 AM INTERIM CONTROLLER): This is a chronic condition which is not at goal of LDL less than 70 Continue rosuvastatin Encouraged to eat healthy, include fresh fruits and vegetables daily and avoid eating fried foods more than once per week. Encouraged to take medications as prescribed. Assessment & Plan (11/18/2022 1:11 PM INTERIM CONTROLLER): This is a chronic condition which is not at goal of LDL less than 70 Continue rosuvastatin Encouraged to eat healthy, include fresh fruits and vegetables daily and avoid eating fried foods more than once per week. Encouraged to take medications as prescribed. Immunizations Name Administration Dates Next Due Influenza, Split 11/22/2017 Influenza, Unspecified 09/06/2024(Deferr ed: Patient Refused),08/22/2023(Deferred: Patient Refused),08/22/2022,01/01/2022(Deferred: Patient Refused),11/22/2021(Deferred: Patient Refused),11/22/2020(Deferred: Patient Refused),11/22/2020(Deferred: Patient Refused) Social History Tobacco Use Types Packs/Day Years Used Date Smoking Tobacco: Never Smokeless Tobacco: Never Tobacco Cessation:Counseling Given: Not Answered Alcohol Use Standard Drinks/Week Comments No 0 (1 standard drink = 0.6 oz pur e alcohol) Social Connection and Isolat ion Panel [NHANES] Answer Date Recorded Frequency of Communication w ith Friends and Family Twice a week 05/10/2019 Frequency of Social Gatherin gs with Friends and Family Twice a week 05/10/2019 Attends [employer] Services More than 4 times per year 05/10/2019 Active Member of Clubs or Organizations Yes 05/10/2019 Attends Club or Organization Meetings More than 4 times per year 05/10/2019 Marital Status 05/10/2019 AUDIT-C Answer Date Recorded Q1: How often do you have a drink containing alcohol? Never 09/06/2024 Q2: How many drinks containi ng alcohol do you have on a typical day when you are drinking? Patient does not drink Q3: How often do you have si x or more drinks on one occasion? Never 09/06/2024 PHQ-2 Answer Date Recorded PHQ-2 Total Score (If total score is 3 or more points, staff should administer the PHQ-9) 0 09/06/2024 Personal Safety Answer Date Recorded Have you ever been in or are you currently in a harmful physical or emotional relationship or is someone making you feel afraid or unsafe? Denies 08/17/2024 Comments No Sex and Gender Information Value Date Recorded Sex Assigned at Not on file Legal Sex Female 2:16 AM INTERIM CONTROLLER Gender Identity Not on file Sexual Orientation Not on file Last Filed Vital Signs Vital Sign Reading Time Taken Comments Blood Pressure 164/92 12/07/2024 2:50 PM INTERIM CONTROLLER Pulse 94 12/07/2024 2:50 PM INTERIM CONTROLLER Temperature 36.9 ??C (98.5 ??F) 12/07/2024 2:50 PM CS T Respiratory Rate 18 09/06/2024 8:14 AM CDT Oxygen Saturation 97% 12/07/2024 2:50 PM INTERIM CONTROLLER Inhaled Oxygen Concentration - - Weight 117.9 kg (260 lb) 12/07/2024 2:50 PM INTERIM CONTROLLER Height 182.9 cm (6') 12/07/2024 2:50 PM INTERIM CONTROLLER Body Mass Index 35.26 12/07/2024 2:50 PM INTERIM CONTROLLER Plan of Treatment Not on file Procedures Procedure Name Priority Date/Time Associated Diagnosis Comments POCT HEMOGLOBIN A1C Routine 12/07/2024 4 :19 PM INTERIM CONTROLLER Type 2 diabetes mellitus with hyperglycemia, with long-term current use of insulin (HCC) ALBUMIN CREATININE RATIO, URINE Routine 12/07/2024 2:22 PM INTERIM CONTROLLER Type 2 diabetes mellitus with hyperglycemia, with long-term current use of insulin (HCC) EGFR STAT 08/17/2024 12:42 PM CDT LIPID PANEL Routine 10/06/2023 9:26 AM INTERIM CONTROLLER Type 2 diabetes mellitus with hyperglycemia, without long-term current use of insulin (CMS/HCC) (HCC) DIABETIC EYE EXAM Routine 05/18/2023 DIAGNOSTIC MAMMOGRAM BILATERAL W MITCH Schedule Routine, Read Routine (OP Routine) 10/02/2022 Breast pain, left HM PAP SMEAR WITH HPV Routine 02/13/2019 COLONOSCOPY Routine 01/06/2018 from Last 3 Months or Most Recently Relevant to Health Maintenance Results * POCT hemoglobin A1c (12/07/2024 4:19 PM INTERIM CONTROLLER) Hemoglobin A1C, POC 12.3 4.0 - 5.6 % Blood 12/07/2024 4:19 PM INTERIM CONTROLLER Ricci Parker MD POINT OF CARE TEST ORDERABLES Final Result * Albumin Creatinine Ratio, Urine (12/07/2024 2:22 PM INTERIM CONTROLLER) Albumin Ur 30.1 mg/L Comment: Interpretive Data No reference range established. Current interpretive data was last revised 2019. Creatinine Ur 143.0 mg/dL [facility] Comment: Interpretive Data No reference range established. Current interpretive data was last revised 2019. Albumin Creatinine Ratio, Ur 21 1 - 29 mg/g [facility] Urine 12/07/2024 2:22 PM INTERIM CONTROLLER 12/08/2024 12:35 PM INTERIM CONTROLLER us Ricci Parker MD LAB URINE ORDERABLES Final Re sult [facility] [address] [facility] Department [place] [address] * eGFR (08/17/2024 12:42 PM CDT) eGFR >90 >=60 mL/min/1. 73 m2 Comment: Interpretive Data Reference Interval Normal ?>/= 90 mL/min/1.73m2 Mildly decreased* ? 60 - 89 mL/min/1.73m2 Mildly to moderately decreased ?45 - 59 mL/min/1.73m2 Moderately to severely decreased ??30 - 44 mL/min/1.73m2 Severely decreased ?15 - 29 mL/min/1.73m2 Kidney Failure ?< 15 ??mL/min/1.73m2 *Relative to young adult level Estimated glomerular filtration rate is determined by the 2020 CKD-EPI equation recommended by the National Kidney Foundation (A Unifying Approach to GFR Estimation: Recommendations of the NKF-ASK Task Force on Reassessing the Inclusion of Race in Diagnosing Kidney Disease, JASN 2020). The CKD-EPI equation should not be used for patients with unstable renal function and has not been validated in children and those over 70. Current interpretive data was last reviewed 2021. Blood 08/17/2024 12:4 2 PM CDT 08/17/2024 12:46 PM CDT us Pj Rod MD LAB BLOOD ORDERABLES Final Result Performing Organization Address City/[facility]/ZIP Co de Phone Number [facility] [address] [facility] Department [place] [address] * (ABNORMAL) Lipid panel (10/06/2023 9:26 AM INTERIM CONTROLLER) Pathologist [facility] Cholesterol 215(H) <200 mg/dL [facility] HDL 59 > OR = 50 mg/dL [facility] Triglycerides 75 <150 mg/dL [facility] LDL 139(H) mg/dL (calc) [facility] [facility] Comment: Reference range: <100 Desirable range <100 mg/dL for primary prevention; ?? <70 mg/dL for patients with CHD or diabetic patients with > or = 2 CHD risk factors. LDL-C is now calculated using the Sergio-Kinney calculation, which is a validated novel method providing better accuracy than the Friedewald equation in the estimation of LDL-C. Sergio SS et al. MIRANDA. 2013;310(19): 2685-4521 (http://education.WorldRemit.Aventura/faq/RSO941) Chol/HDL ratio 3.6 <5.0 (calc) [facility] Non-HDL, (LDL+VLDL) 156(H) <130 mg/dL (calc) [facility] Comment: For patients with diabetes plus 1 major ASCVD risk factor, treating to a non-HDL-C goal of <100 mg/dL (LDL-C of <70 mg/dL) is considered a therapeutic option. Blood 10/06/2023 9:26 AM INTERIM CONTROLLER 10/06/2023 9:28 AM INTERIM CONTROLLER Narrative [facility] - 10/08/2023 1:26 AM INTERIM CONTROLLER FASTING:YES FASTING: YES us Jerica Burleson NP LAB BLOOD ORDERABLES Final Resu lt [facility] [address] [address] [id number] * (ABNORMAL) Diabetic Eye Exam (05/18/2023) 05/18/2023 Historical Provider HEALTH MAINTENANCE Final Result * Diagnostic Mammogram Bilateral W Mitch (10/02/2022) Anatomical Region Laterality Modality Breast Bilateral Mammography 10/02/2022 Janett Carreon FUNDING ANALYST IMG MAMMO PROCEDURES Final Result * HM PAP SMEAR WITH HPV (02/13/2019) Historical Provider HEALTH MAINTENANCE Final Result * Colonoscopy (01/06/2018) Anatomical Region Laterality Modality Other Historical Provider ENDOSCOPY PROCEDURES Lauren l Result from Last 3 Months or Most Recently Relevant to Health Maintenance Insurance [facility] Care Teams Wool Mixer Relationship Specialty Start Date End Date Ricci Parker MD PCP - General Family Medicine 01/01/22
--- OUTSIDE RECORDS SUMMARY | 2024-12-15 16:33 | XMS_ITS | Encounter Summary ---
Author Organization [facility] Healthcare Address [address] [place] [id number] Care Team Providers Care Form Tamping Machine Operator Name Role Phone Ricci Parker MD Primary Care Provider [phone] Reason for Visit * Reason Onset Date Comments Back Pain 12/15/2024 Encounter Details Date Type Department Care Team (Late st Contact Info) Description 12/15/2024 Nurse Triage [facility] Medical Group Family Medicine at [address] [place] [address] Ricci Parker MD [address] [place] [address] [address] Social History Tobacco Use Types Packs/Day Years Used Date Smoking Tobacco: Never Smokeless Tobacco: Never Alcohol Use Standard Drinks/Week Comments No 0 (1 standard drink = 0.6 oz pur e alcohol) Social Connection and Isolat ion Panel [NHANES] Answer Date Recorded Frequency of Communication w ith Friends and Family Twice a week 05/10/2019 Frequency of Social Gatherin gs with Friends and Family Twice a week 05/10/2019 Attends [employer] More than 4 times per year [...] you are drinking? Patient does not drink 10/16/202 4 Q3: How often do you have si [...] on file Legal Sex Female 2:16 AM SHAMPOOER Gender Identity Not on file Sexual Orientation Not on file documented as of this encounter Miscellaneous Notes * Telephone Encounter - Susan Cox RN - 12/15/2024 2:37 PM CST Patient instructed to go to ER. Patient agreeable. POOER * Telephone Encounter - Anabell Leggett RN - 12/15/2024 1:21 PM CST Pt complaining of lower back pain; pt fell down stairs on Wednesday. Pt had panty hose on and slipped down stairs before voodoo on Wednesday. Has been 4 days and not improved. Pt reports pain is about 5-6/10. No appts today to be seen. Scheduled pt for Wednesday. Encouraged icy/hot, ice packs alternated with heat. Epson salt baths. Tylenol for pain. Discussed care advice and worsening signs and symptomsof condition on which to call back. Pt verbalizes understanding. Reason for Disposition SEVERE back pain (e.g., excruciating, unable to do any normal activities) and not improved after pain medicine and CARE ADVICE Protocols used: Back [id number] POOER * Telephone Encounter - Anabell Leggett RN - 12/15/2024 1:19 PM CST Regarding: Fall, severe pain lower back ----- Message from Katy Jimenez sent at 12/15/2024 1:17 PM SHAMPOOER ----- Symptom Based Call Chief Complaint(s): Fall, Severe pain lower back Duration: 12/10/24 What type of symptom(s) is the patient experiencing? Red Flag. Is the patient concerned they are experiencing a medical emergency requiring an ambulance? No Additional Comments: Patient fell down 13 stairs on Wednesday. Did not seek medical attention. Entire body is sore. Severe pain in back. Did not hit head. Does message need to be routed? Yes-Action Needed POOER documented in this encounter Plan of Treatment Not on file documented as of this encounter Visit Diagnoses Not on filedocumented in this encounter Care Teams Form Tamping Machine Operator Relationship Specialty Start Date End Date Ricci Parker MD PCP - General Family Medicine 01/01/22 documented as of this encounter
--- OUTSIDE RECORDS SUMMARY | 2024-12-15 16:33 | XMS_ITS | Clinical Summary ---
Author Organization [facility] Address [address] [place] [address] Care Team Providers Care Search Engine Marketing Manager Name Role Phone Ricci Parker MD Primary Care Provider [phone] Allergies Active Allergy Reactions Criticality Noted Date Comments Aspartame Headache Low 01/01/2022 Aspirin Vomiting,Headache Low 10/10/2015 Headache Propoxyphene-Acetaminophen Vomiting Low 9 Oxycodone Headache Low 10/10/2015 Headache Propoxyphene Headache Low 10/10/2015 Headache Oxycodone-Acetaminophen Headache Low 05/10/2019 Medications clobetasoL (TEMOVATE) 0.05 % ointment 4 Active pen needle, diabetic 31 gauge x 5/16 needleIndication s:Type 2 diabetes mellitus with hyperglycemia, with long-term current use of insulin (HCC) Use to inject 1 time daily as [...] hyperglycemia, without long-term current use of insulin (HCC) Inject 28 Units under the skin nightly 15 mL 5 4 Active rosuvastatin (CRESTOR) 5 mg tablet Take 1 tablet (5 mg total) by mouth daily 30 tablet 11 5 12/07/19 26 Active dapagliflozin propanediol (FARXIGA) 10 mg tabletIndication s:Type 2 diabetes mellitus with hyperglycemia, with long-term current use of insulin (HCC) Take 1 tablet (10 mg total) by mouth daily 90 tablet 3 5 Active blood-glucose sensor deviceIndication s:Type 2 diabetes mellitus with hyperglycemia, without long-term current use of insulin (HCC) Check blood sugar 3-4 times daily, change every 15 days 2 each 11 5 Active insulin glargine 100 unit/mL (3 mL) pen for injectionIndicat ions:Type 2 diabetes mellitus with hyperglycemia, without long-term current use of insulin (HCC) Inject 28 Units under the skin nightly 15 mL 5 4 11/17/20 24 Discontin ued(Reord er) dapagliflozin propanediol (FARXIGA) 10 mg tabletIndication s:Type 2 diabetes mellitus with hyperglycemia, with long-term current use of insulin (HCC) Take 1 tablet (10 mg total) by mouth daily 90 tablet 3 4 12/13/19 25 Discontin ued(Reord er) blood-glucose sensor device As directed 1 each 2 5 12/13/19 25 Discontin ued(Alter sekou therapy) blood-glucose sensor deviceIndication s:Type 2 diabetes mellitus with hyperglycemia, without long-term current use of insulin (HCC) Check blood sugar 3-4 times daily change [...] answer Assessment & Plan (12/22/2023 9:33 AM ANESTHESIOLOGIST/PHYSICIAN): This is a chronic condition which is [...] oz) Discussed starting CHIP program Refer to health educator as well Assessment & Plan (12/22/2023 9:32 AM ANESTHESIOLOGIST/PHYSICIAN): This is a chronic condition which is improving 5 lb weight loss since last office visit Encouraged healthy eating and exercise Assessment & Plan (11/04/2023 2:18 PM ANESTHESIOLOGIST/PHYSICIAN): This is a chronic condition which is [...] daily Continue daily glucose checks Refer to health educator Assessment & Plan (08/17/2024 11:29 AM CDT): Severe exacerbation POC 430 Advise ER d/t symptomatic and concern for DKA and hypertensive crisis Pt feels unable to safely get to ER on her own. Pt is going to have sister take her to ER. Offered 911 services but pt would prefer sister transport. Sister 10min ETA. Assessment & Plan (12/22/2023 9:31 AM ANESTHESIOLOGIST/PHYSICIAN): This is a chronic condition which is [...] rosuvastatin Assessment & Plan (11/04/2023 2:15 PM ANESTHESIOLOGIST/PHYSICIAN): This is a chronic condition which is [...] sugar 2 times a day. Continuously with freestyle angela 3 sensor. Encouraged annual [...] rosuvastatin Assessment & Plan (12/31/2022 10:49 AM ANESTHESIOLOGIST/PHYSICIAN): This is a chronic condition which is [...] rosuvastatin Assessment & Plan (11/18/2022 1:10 PM ANESTHESIOLOGIST/PHYSICIAN): This is a chronic condition which is [...] 05/16/2024 Assessment & Plan (12/22/2023 9:32 AM ANESTHESIOLOGIST/PHYSICIAN): This is a chronic condition which is not at goal of LDL less than 70 Continue rosuvastatin Encouraged to eat healthy, include fresh fruits and vegetables daily and avoid eating fried foods more than once per week. Encouraged to take medications as prescribed. Assessment & Plan (11/04/2023 2:15 PM ANESTHESIOLOGIST/PHYSICIAN): This is a chronic condition which is [...] prescribed. Assessment & Plan (12/31/2022 9:58 AM ANESTHESIOLOGIST/PHYSICIAN): This is a chronic condition which is not at goal of LDL less than 70 Continue rosuvastatin Encouraged to eat healthy, include fresh fruits and vegetables daily and avoid eating fried foods more than once per week. Encouraged to take medications as prescribed. Assessment & Plan (11/18/2022 1:11 PM ANESTHESIOLOGIST/PHYSICIAN): This is a chronic condition which is not at goal of LDL less than 70 Continue rosuvastatin Encouraged to eat healthy, include fresh fruits and vegetables daily and avoid eating fried foods more than once per week. Encouraged to take medications as prescribed. Encounters Date Type Department Care Team Description 12/15/2024 Nurse Triage [facility] Family Medicine at [address] [phone] Ricci Parker MD 12/11/2024 Telephone [facility] Family Medicine at [address] [address] Ricci Parker MD Med Refill 12/08/2024 Telephone [facility] Family Medicine at [address] [address] Ricci Parker MD 12/07/2024 2:45 PM ANESTHESIOLOGIST/PHYSICIAN Office Visit [facility] Family Medicine at [address] [address] Ricci Parker MD Type 2 diabetes mellitus with hyperglycemia, with long-term current use of insulin (HCC) (Primary Dx); Essential hypertension; Mixed hyperlipidemia 12/07/2024 8:07 AM ANESTHESIOLOGIST/PHYSICIAN - 12/07/2024 11:59 PM ANESTHESIOLOGIST/PHYSICIAN Hospital Encounter [facility] Medical Office Bld[address] [place] [id number] Type 2 diabetes mellitus with hyperglycemia, with long-term current use of insulin (HCC) Discharge Disposition: Discharge to home or self care 11/17/2024 Telephone [facility] Family Medicine at [address] [place] [phone] Ricci Parker MD Med Refill 11/02/2024 Telephone [facility] Family Medicine at [address] [address] Ricci Parker MD Medication Request 10/24/2024 Orders Only [facility] Medical [facility] at [address] [phone] Willie Matthews MD Screening for colon cancer (Primary Dx) 10/05/2024 Telephone [facility] Family Medicine at [address] [phone] Ricci Parker MD Med Refill 10/03/2024 Orders Only [facility] Gastroenterology at [address] [phone] Willie Matthews MD 10/03/2024 Orders Only [facility] Gastroenterology at [address] [address] Willie Matthews MD Colon cancer screening (Primary Dx) 09/22/2024 9:56 AM CDT - 09/22/2024 11:59 PM CDT Hospital Encounter [facility] Nutrition and Diabetic Education 1 [facility] Room [address] [address] Rhoda Mcfadden, RN Type 2 diabetes mellitus with hyperglycemia, with long-term current use of insulin (HCC) Discharge Disposition: Discharge to home or self care 09/20/2024 10:00 AM CDT Clinical Support [facility] Medical [facility] Family Medicine at [address] [phone] Essential hypertension (Primary Dx) from Last 3 Months Immunizations Name Administration Dates Next Due Influenza, Split 11/22/2017 Influenza, Unspecified 09/06/2024(Deferr ed: Patient Refused),08/22/2023(Deferred: Patient Refused),08/22/2022,01/01/2022(Deferred: Patient Refused),11/22/2021(Deferred: Patient Refused),11/22/2020(Deferred: Patient Refused),11/22/2020(Deferred: Patient Refused) Surgical History Surgery Date Site/Laterality Comments TUBAL LIGATION CHOLECYSTECTOMY MYOMECTOMY leiomyoma: laprascopic myomectomy LAPAROSCOPIC TUBAL LIGATION undesired fertiliy: laprascopic tubal ligation SECTION 11/22/2001 - 11/21/2002 : KNEE SURGERY 11/22/2012 - 11/21/2013 torn meniscus: Knee surgery Medical History Medical History Date Comments Hx Other Medical 2006 undesired ferti liy Hypertension Diabetes (HCC) Menopause ovarian failure Diabetes mellitus, type 2 (HCC) Leiomyoma 1994 leiomyoma 2001 ; Comme nts: Anyi; Outcome: 40 week 7 lb(s) 7 oz Female Torn meniscus 2012 torn meniscus; L aterality: right Gout 02/14/2024 Family History Medical History Relation Name Comments Brain Aneurysm Brother 3 brain aneurys m; Cause of : brain aneurysm Cancer Mother Coronary artery disease Mother Shirin nary artery disease; Diabetes Mother Diabetes mellit us; Hypertension Mother Pancreatic cancer Mother Colonic polyp Sister Hypertension Sister Hypertension; Relation Name Status Comments Brother 1 (Age 59) Brother 2 Alive Brother 3 Father Mother Sister Social History Tobacco Use Types Packs/Day Years [...] and Family Twice a week 05/10/2019 Attends [employer] More than 4 times per year [...] on file Legal Sex Female 2:16 AM ANESTHESIOLOGIST/PHYSICIAN Gender Identity Not on file Sexual Orientation Not on file Obstetrics History Para Term AB IAB SAB Ectopic Multiple Livin g Live Births 1 0 1 1 Date Outcome GA Total Labor Labor/2nd/3rd Weight Sex Type Anes PTL Anna A1 A5 Name Clin 002 F CS-Uns pec Last Filed Vital Signs Vital Sign Reading Time Taken Comments Blood Pressure 164/92 12/07/2024 2:50 PM ANESTHESIOLOGIST/PHYSICIAN Pulse 94 12/07/2024 2:50 PM ANESTHESIOLOGIST/PHYSICIAN Temperature 36.9 ??C (98.5 ??F) 12/07/2024 2:50 PM CS T Respiratory Rate 18 09/06/2024 8:14 AM CDT Oxygen Saturation 97% 12/07/2024 2:50 PM ANESTHESIOLOGIST/PHYSICIAN Inhaled Oxygen Concentration - - Weight 117.9 kg (260 lb) 12/07/2024 2:50 PM ANESTHESIOLOGIST/PHYSICIAN Height 182.9 cm (6') 12/07/2024 2:50 PM ANESTHESIOLOGIST/PHYSICIAN Body Mass Index 35.26 12/07/2024 2:50 PM ANESTHESIOLOGIST/PHYSICIAN Plan of Treatment Health Maintenance Due Date Last Done Comments Hepatitis C Screening 1965 DTaP/Tdap/Td Vaccine (1 - Tdap) 1975 Hepatitis B Screening 1982 Zoster Vaccine (1 of 2) 2014 Regular Well Visit/Exam 18-64 10/31/2022 10/31/2021 Colon Cancer Screening-Colonoscopy 01/06/2023 01/06/2018 Breast Cancer Screening-Mammogram 10/02/2023 10/02/2022, 10/02/2022, 11/17/2013 Dilated Eye Exam 05/18/2024 05/18/2023, 05/18/2023 Covid-19 Vaccine ( season) 2024 03/08/2021, 02/15/2021 Lipid Panel 10/06/2024 10/06/2023, 08/22, 01/01/2022 Foot Exam 12/22/2024 12/22/2023, 10/22, 09/23/2023, Additional history exists Influenza Vaccine (#1) 2025 08/22/2022, 2017 Postponed from 07/23/2024 (Patient declined, but will receive in the future) Hemoglobin A1C 06/06/2025 12/07/2024, 07/24, 03/07/2024, Additional history exists eGFR 08/17/2025 08/17/2024, 02/20, 10/06/2023, Additional history exists Depression Screening 09/06/2025 09/06/2024, 06/30/2023, 11/12/2022, Additional history exists Albumin Creatinine Ratio, Urine 12/07/2025 12/07/2024, 10/06/2023, 09/02/2022 Cervical Cancer Screening 03/31/2028 03/31/2023, Pneumococcal vaccine <65 (1 of 2 - PCV) 04/25/2028 Postponed from 1970 (Provider's clinical decision) Colon Cancer Screening-CT Colonography Discontinued 01/06/2018 Colon Cancer Screening-DNA Stool Discontinued 01/06/2018 Colon Cancer Screening-FIT Discontinued 01/06/2018 Colon Cancer Screening-Sigmoidoscopy Discontinued 01/06/2018 Procedures Procedure Name Priority Date/Time Associated Diagnosis Comments POCT HEMOGLOBIN A1C Routine 12/07/2024 4 :19 PM ANESTHESIOLOGIST/PHYSICIAN Type 2 diabetes mellitus with hyperglycemia, with long-term current use of insulin (HCC) ALBUMIN CREATININE RATIO, URINE Routine 12/07/2024 2:22 PM ANESTHESIOLOGIST/PHYSICIAN Type 2 diabetes mellitus with hyperglycemia, with long-term current use of insulin (HCC) EGFR STAT 08/17/2024 12:42 PM CDT LIPID PANEL Routine 10/06/2023 9:26 AM ANESTHESIOLOGIST/PHYSICIAN Type 2 diabetes mellitus with hyperglycemia, without long-term current use of insulin (CMS/HCC) (HCC) DIABETIC EYE EXAM Routine 05/18/2023 DIAGNOSTIC MAMMOGRAM BILATERAL W MITCH Schedule Routine, Read Routine (OP Routine) 10/02/2022 Breast pain, left HM PAP SMEAR WITH HPV Routine 02/13/2019 COLONOSCOPY Routine 01/06/2018 from Last 3 Months or Most Recently Relevant to Health Maintenance Results * POCT hemoglobin A1c (12/07/2024 4:19 PM ANESTHESIOLOGIST/PHYSICIAN) Pathologist [facility] Hemoglobin A1C, POC 12.3 4.0 - 5.6 % Blood 12/07/2024 4:19 PM ANESTHESIOLOGIST/PHYSICIAN Ricci Parker MD POINT OF CARE TEST ORDERABLES Final Result * Albumin Creatinine Ratio, Urine (12/07/2024 2:22 PM ANESTHESIOLOGIST/PHYSICIAN) Pathologist [facility] Albumin Ur 30.1 mg/L Comment: Interpretive Data No reference range established. Current interpretive data was last revised 2019. Creatinine Ur 143.0 mg/dL [facility] Comment: Interpretive Data No reference range established. Current interpretive data was last revised 2019. Albumin Creatinine Ratio, Ur 21 1 - 29 mg/g [facility] Urine 12/07/2024 2:22 PM ANESTHESIOLOGIST/PHYSICIAN 12/08/2024 12:35 PM ANESTHESIOLOGIST/PHYSICIAN Ricci Parker MD LAB URINE ORDERABLES Final Re sult [facility] [address] [facility] Department [place] [address] * eGFR (08/17/2024 12:42 PM CDT) Pathologist [facility] eGFR >90 >=60 mL/min/1. 73 m2 Comment: [...] BLOOD ORDERABLES Final Result Performing Organization Address City/State/[facility] Co ca Phone Number [phone] [facility] Department [place] [address] * (ABNORMAL) Lipid panel (10/06/2023 9:26 AM ANESTHESIOLOGIST/PHYSICIAN) Pathologist [facility] Cholesterol 215(H) <200 mg/dL [facility] [...] factors. LDL-C is now calculated using the Hanna calculation, which is a validated novel method providing better accuracy than the Friedewald equation in the estimation of LDL-C. Sergio GUDINO et al. MIRANDA. 2013;310(19): 2165-9919 (http://education.PlayFitness/faq/NSZ465) Chol/HDL ratio 3.6 <5.0 (calc) [facility] Non-HDL, (LDL+VLDL) 156(H) <130 mg/dL (calc) [facility] Comment: For patients with diabetes plus 1 major ASCVD risk factor, treating to a non-HDL-C goal of <100 mg/dL (LDL-C of <70 mg/dL) is considered a therapeutic option. Blood 10/06/2023 9:26 AM ANESTHESIOLOGIST/PHYSICIAN 10/06/2023 9:28 AM ANESTHESIOLOGIST/PHYSICIAN Narrative [facility] - 10/08/2023 1:26 AM ANESTHESIOLOGIST/PHYSICIAN FASTING:YES FASTING: YES Jerica Burleson NP LAB BLOOD ORDERABLES Final Resu lt [facility] [address] [place] [address] * (ABNORMAL) Diabetic Eye Exam (05/18/2023) 05/18/2023 Historical Provider HEALTH MAINTENANCE Final Result * Diagnostic Mammogram Bilateral W Mitch (10/02/2022) Anatomical Region Laterality Modality Breast Bilateral Mammography 10/02/2022 us Janett Carreon NP IMG MAMMO PROCEDURES Final Result * HM PAP SMEAR WITH HPV (02/13/2019) Historical Provider HEALTH MAINTENANCE Final Result * Colonoscopy (01/06/2018) Anatomical Region Laterality Modality Other us Historical Provider ENDOSCOPY PROCEDURES Lauren l Result from Last 3 Months or Most Recently Relevant to Health Maintenance Insurance [facility] Care Teams Search Engine Marketing Manager Relationship Specialty Start Date End Date Ricci Parker MD PCP - General Family Medicine 01/01/22
[2024-12-15 17:14] VITALS: BP 183/91; PULSE 87; RESP 20; TEMP 36.2; O2SAT 99
--- NOTE | 2024-12-15 17:57 | ED.BACK ---
HPI - Back Pain/Injury General Chief Complaint: Back Pain/Injury <Rosana Mijares CONSTRUCTION ECONOMIST - Last Filed: 12/15/24 18:03> Stated Complaint: fell down steps 12/10, back pain <Rosana iMjares CONSTRUCTION ECONOMIST - Last Filed: 12/15/24 18:03> Time Seen by Provider: 12/15/24 17:45 <Rosana Mijares CONSTRUCTION ECONOMIST - Last Filed: 12/15/24 18:03> Focused HPI: Patient is a 59-year-old female who presents to the ER with complaints of pain following a fall 5 days ago. She reports she was standing at the top of her steps, wearing panty hose, when she slipped off and fell down 13 steps. Patient reports she slipped and fell backward and slid down the steps, like a sled. She denies any head injury or loss of consciousness. Patient endorses a history of high blood pressure and diabetes. She reports she took Tylenol last night for pain control. Patient denies any headache, one-sided weakness/tingling/numbness, abdominal pain, chest pain, shortness of breath. GENERAL: Well-appearing, well-nourished, and in mild distress d/t pain. HEAD: Normocephalic, atraumatic. CHEST: Clear to auscultation. ?No respiratory distress. HEART: Regular rate and rhythm.? NEURO: ?Alert and oriented x3. Patient screened in triage and initial orders placed.? ?Additional care and disposition to be based upon?diagnostic testing and treatment. <Rosana Mijares CONSTRUCTION ECONOMIST - Last Filed: 12/15/24 18:03> Focused HPI: Patient is a 59-year-old female who presents to the ER with complaints of pain following a fall 5 days ago. She reports she was standing at the top of her steps, wearing panty hose, when she slipped off and fell down 13 steps. Patient reports she slipped and fell backward and slid down the steps, like a sled. She denies any head injury or loss of consciousness. Patient endorses a history of high blood pressure and diabetes. She reports she took Tylenol last night for pain control. Patient denies any headache, one-sided weakness/tingling/numbness, abdominal pain, chest pain, shortness of breath. GENERAL: Well-appearing, well-nourished, and in mild distress d/t pain. HEAD: Normocephalic, atraumatic. CHEST: Clear to auscultation. ?No respiratory distress. HEART: Regular rate and rhythm.? NEURO: ?Alert and oriented x3. Patient screened in triage and initial orders placed.? ?Additional care and disposition to be based upon?diagnostic testing and treatment. <LANI Cheung Last Filed: 12/15/24 21:18> Source: patient <LANI Cheung Last Filed: 12/15/24 21:18> Mode of arrival: ambulatory <LANI Cheung Last Filed: 12/15/24 21:18> Limitations: no limitations <LANI Cheung Last Filed: 12/15/24 21:18> History of Present Illness HPI Narrative: Agree with above HPI. States she called her primary care doctor today, but was advised that they could not prescribe her any pain medication until she was evaluated in the ED. Denies numbness, bowel or bladder incontinence, saddle anesthesia. <LANI Cheung Last Filed: 12/15/24 21:18> Related Data Home Medications: Home Medications ?Medication ?Instructions ?Recorded ?Confirmed ?Last Taken ?Type semaglutide 14 mg tablet (Rybelsus) 14 mg PO DAILY 03/31/23 05/31/24 Unknown History <Rosana Mijares APRN - Last Filed: 12/15/24 18:03> Allergies/Adverse Reactions: Allergies Allergy/AdvReac Type Severity Reaction Status Date / Time aspirin Allergy Mild VOMITING Verified 12/15/24 16:31 oxycodone Allergy Mild VOMITING Verified 12/15/24 16:31 propoxyphene Allergy Mild VOMITING Verified 12/15/24 16:31 maple surpy Allergy Severe Vomiting Uncoded 12/15/24 16:31 ASPERTENE Allergy Unknown MIGRAINE Uncoded 12/15/24 16:31 <Rosana Mijares APRN - Last Filed: 12/15/24 18:03> Review of Systems Review of Systems: All systems reviewed & are unremarkable except as noted in HPI. <Adalgisa Murcia PA-C - Last Filed: 12/15/24 21:18> All systems reviewed & are unremarkable except as noted in HPI and below <Adalgisa Murcia PA-C - Last Filed: 12/15/24 21:18> [facility] Past Medical History Medical History: Medical History Mixed hyperlipidemia HTN (hypertension), benign Hepatic steatosis Diabetes mellitus <Rosana Mijares APRN - Last Filed: 12/15/24 18:03> Surgical History Surgical History: Surgical History History of hysteroscopy fibroids removed Delivery by section History of cholecystectomy History of colonoscopy <Rosana Mijares APRN - Last Filed: 12/15/24 18:03> Family History Family History: Family History Sibling Family history of malignant neoplasm of breast in first degree relative Hypertension, Onset Age: 59 Family history of thoracic aortic aneurysm, Onset Age: 59 Patient's brother is , Onset Age: 59 Mother Hypertension Family history of cardiovascular disease, Onset Age: 87 Father Malignant neoplasm of prostate Other Cerebrovascular accident Diabetes mellitus Family history of arthritis Family history of malignant neoplasm <Rosana Mijares APRN - Last Filed: 12/15/24 18:03> Social History Social History: Social History Smoking status: Never smoker Second hand tobacco smoke exposure: No Alcohol intake: never Substance use: never Substance use type: does not use Living arrangements: with family Occupation/Education: occupation Gender identity (if verbalized by the patient): Female Sexual Orientation (if Verbalized by the Patient): Straight or Heterosexual <Rosana Mijares APRN - Last Filed: 12/15/24 18:03> Exam Narrative: GENERAL: Well appearing obese with BMI of 34.1, non-toxic, in no acute distress. HEAD: Normocephalic, atraumatic. RESPIRATORY: Airway patent, respirations nonlabored. Clear to auscultation bilaterally, no rales, rhonchi, wheezing. CARDIOVASCULAR: Regular rate and rhythm without murmurs, rubs, or gallops. MUSCULOSKELETAL: Moves all extremities. No gross deformities. Mild TTP in mid upper thoracic region without palpable bony deformities or step offs. Diffuse tenderness in lumbosacral region, R SI region. Sensation intact. SKIN: Warm, dry, normal color. NEURO: A&O X3. Speech clear. Cranial nerves II-XII grossly intact. Steady gait. No ataxic movements. No focal deficits. PSYCHIATRIC: Appropriate mood and affect. Normal interaction. <Adalgisa Murcia PA-C - Last Filed: 12/15/24 21:18> Course Vital Signs Vital signs: Vital Signs Temperature 97.2 F L 12/15/24 17:14 Pulse Rate 87 12/15/24 17:14 Respiratory Rate 20 12/15/24 17:14 Blood Pressure 183/91 H 12/15/24 17:14 Pulse Oximetry 99 12/15/24 17:14 Oxygen Delivery Room Air 12/15/24 17:14 Temperature 97.2 F L 12/15/24 17:14 Pulse Rate 68 12/15/24 20:13 Respiratory Rate 18 12/15/24 20:13 Blood Pressure 149/80 H 12/15/24 20:13 Pulse Oximetry 100 12/15/24 20:13 Oxygen Delivery Room Air 12/15/24 17:14 <Rosana Mijares APRN - Last Filed: 12/15/24 18:03> Vital Signs Temperature 97.2 F L 12/15/24 17:14 Pulse Rate 87 12/15/24 17:14 Respiratory Rate 20 12/15/24 17:14 Blood Pressure 183/91 H 12/15/24 17:14 Pulse Oximetry 99 12/15/24 17:14 Oxygen Delivery Room Air 12/15/24 17:14 Temperature 97.2 F L 12/15/24 17:14 Pulse Rate 68 12/15/24 20:13 Respiratory Rate 18 12/15/24 20:13 Blood Pressure 149/80 H 12/15/24 20:13 Pulse Oximetry 100 12/15/24 20:13 Oxygen Delivery Room Air 12/15/24 17:14 <Adalgisa Murcia PA-C - Last Filed: 12/15/24 21:18> MDM - Back Pain/Injury MDM Narrative Medical decision making narrative: Patient presented to ED several days status post fall down stairs, complaining pain throughout her back. Denies any head injury or LOC. Vital signs are stable upon arrival. Patient is neurologically intact. No focal deficits. No red flag symptoms. No evidence of cord compression or cauda equina. Feeling improved after Toradol given in triage. CT of cervical, thoracic, lumbar spine without evidence of acute traumatic findings. Does show likely muscular strain. X-ray of right hip/pelvis negative. Patient updated on imaging results. Discussed high likelihood of musculoskeletal etiology, muscular strain. Discussed continued management of such including Tylenol, ibuprofen, muscle relaxers. Recommended follow-up with PCP for further evaluation. Discussed strict return precautions. Patient agrees with plan. Discharged in stable condition. Urinalysis was obtained from triage. Does show evidence of possible infection. Sent for culture. Discussed this with patient. Discussed waiting for culture results versus starting antibiotics now. Patient would prefer to start abx now. Denies dysuria but does c/o occasional urinary frequency. Recommended patient f/u with pcp for urine culture results. <Adalgisa Murcia PA-C - Last Filed: 12/15/24 21:18> Medical Records Attestation: I reviewed the patient's medical records. <Adalgisa Murcia PA-C - Last Filed: 12/15/24 21:18> Lab Data Attestation: I reviewed the patient's lab results. <Adalgisa Murcia PA-C - Last Filed: 12/15/24 21:18> Labs: Lab Results 12/15/24 Range/Units 19:23 Urine Color Dark yellow (Yellow) Urine Appearance Cloudy H (Clear) Urine pH 5.5 (5.0-9.0) Ur Specific [place] 1.031 (1.001-1.035) Urine Protein 1+ H (Negative) mg/dL Urine Glucose (UA) Trace H (Negative) mg/dL Urine Ketones Trace H (Negative) mg/dL Ur Blood (Man) Negative (Negative) Urine Nitrate Negative (Negative) Urine Bilirubin Negative (Negative) Urine Urobilinogen 1.0 (<2.0) mg/dL Leukocyte Esterase Rfl Trace H (Negative) ASUNCION/UL Urine RBC 0-2 (0-2) /hpf Urine WBC 11-20 H (0-3) /hpf Ur Squamous Epith Cells Moderate (Few) /hpf Urine Bacteria 1+ H /hpf Urine Casts 3-5 <Rosana Mijares APRN - Last Filed: 12/15/24 18:03> Lab Results 12/15/24 Range/Units 19:23 Urine Color Dark yellow (Yellow) Urine Appearance Cloudy H (Clear) Urine pH 5.5 (5.0-9.0) Ur Specific [place] 1.031 (1.001-1.035) Urine Protein 1+ H (Negative) mg/dL Urine Glucose (UA) Trace H (Negative) mg/dL Urine Ketones Trace H (Negative) mg/dL Ur Blood (Man) Negative (Negative) Urine Nitrate Negative (Negative) Urine Bilirubin Negative (Negative) Urine Urobilinogen 1.0 (<2.0) mg/dL Leukocyte Esterase Rfl Trace H (Negative) ASUNCION/UL Urine RBC 0-2 (0-2) /hpf Urine WBC 11-20 H (0-3) /hpf Ur Squamous Epith Cells Moderate (Few) /hpf Urine Bacteria 1+ H /hpf Urine Casts 3-5 <LANI Cheung Last Filed: 12/15/24 21:18> Imaging Data Attestation: I personally reviewed and interpreted this imaging study as follows: <LANI Cheung Last Filed: 12/15/24 21:18> Radiologist's impression: ITS Impressions Hip/Pelvis X-Ray 12/15/24 19:18 IMPRESSION: Trace degenerative disease without acute fracture or dislocation. Cervical Spine CT 12/15/24 19:28 Impression: Straightening and slight reversal of the normal curvature of the cervical spine, likely muscular in origin. No acute fracture. Thoracic/Lumbar Spine CT 12/15/24 19:59 Impression: Straightening of the normal lordotic curvature of the lumbar spine, likely muscular in origin. Preservation of the normal curvature of the thoracic spine No acute compression fracture. <LANI Cheung Last Filed: 12/15/24 21:18> Discharge Plan Discharge Clinical Impression: Strain of lumbar region, Strain of thoracic region, Fall down stairs, Abnormal finding on urinalysis <Rosana Mijares APRN - Last Filed: 12/15/24 18:03> Patient Disposition: Home, Self-Care <Rosana Mijares APRN - Last Filed: 12/15/24 18:03> Condition: Stable <Rosana Mijares APRN - Last Filed: 12/15/24 18:03> Instructions: Antibiotic Form, Urinary Tract Infection in Women (ED), Acute Low Back Pain (ED), Lower Back Exercises (ED), Thoracic Back Strain (ED) <Rosana Mijares APRN - Last Filed: 12/15/24 18:03> Additional Instructions: Continue Tylenol and Ibuprofen as needed for pain. You may use ice/heat, lidocaine patches to area of pain. Take muscle relaxers as needed and prescribed. Recommend taking these at night as they may cause sedation. Do not drive, operate heavy machinery, drink alcohol while on muscle relaxers as this may cause further sedation. Follow-up with your primary care doctor for further evaluation. Return to the ED if you experience worsening or severe pain, recurrent injury, numbness in groin or legs, going to the bathroom without meaning to, unable to keep down food or drink, or any other symptoms of concern. Your urine showed signs of infection. Take antibiotics as prescribed. Follow-up with your primary care doctor for further evaluation and urine culture results. <Rosana Mijares APRN - Last Filed: 12/15/24 18:03> Patient Language: French <Rosana Mijares APRN - Last Filed: 12/15/24 18:03> Prescriptions: New lidocaine 5 % adhesive patch,medicated 1 patch topical DAILY Qty: 15 0RF Rx Instructions: leave on most painful area for up to 12 hrs cyclobenzaprine 5 mg tablet 5 mg PO TID PRN (Reason: muscle spasm) Qty: 15 0RF cephalexin 500 mg capsule 500 mg PO Q6H 7 Days Qty: 28 0RF No Action Rybelsus 14 mg tablet 14 mg PO DAILY clobetasol 0.05 % ointment 1 applic topical BID 14 Days Qty: 60 6RF Rx Instructions: apply topically to the vulva once daily for 6 weeks, then continue using 2-3x/week for the next month, then continue 1-4x/month thereafter (DME) blood-glucose meter [OneTouch Verio Meter] [facility] See Rx Instructions .Route Qty: 1 1RF Rx Instructions: Use as directed (Please dispense whatever machine is covered on insurance). (DME) lancets [OneTouch Delica Lancets] 33 gauge misc See Rx Instructions .Route Qty: 100 2RF Rx Instructions: Use up to twice daily as directed (Please dispense whatever is covered). (DME) OneTouch Ultra Blue Test Strip Strip See Rx Instructions .Route Qty: 100 2RF Rx Instructions: Use up to bid to test blood sugars (Please dispense whatever is covered). amlodipine 10 mg tablet See Rx Instructions .ROUTE .COMPLEX Qty: 90 0RF Dose Instruction: TAKE 1 TABLET BY MOUTH DAILY Rx Instructions: TAKE 1 TABLET BY MOUTH DAILY cyclobenzaprine 10 mg tablet 10 mg PO TID Qty: 21 0RF <Rosana Mijares APRN - Last Filed: 12/15/24 18:03> Follow-up/Referrals: Keith,Ricci Jimenez MD [Primary Care Provider] - <Rosana Mijares APRN - Last Filed: 12/15/24 18:03> Time of Disposition: 20:42 <Rosana Mijares APRN - Last Filed: 12/15/24 18:03> 20:42 <Adalgisa Murcia PA-C - Last Filed: 12/15/24 21:18>
[2024-12-15] MEDS: KETOROLAC (*BKC) 60 MG/2 ML VIAL IM (18:17)
--- OUTSIDE RECORDS SUMMARY | 2024-12-15 18:21 | XMS_ITS | Clinical Summary ---
Author Organization [facility] Address [address] [place] [address]. [place] [address] [place] [address] Care Team Providers Care Destination Imagination Coordinator Name Role Phone Ricci Parker MD Primary Care Provider [phone] Allergies Active Allergy Reactions Criticality Noted Date [...] age to complete this topic Insurance [employer] [facility] Care Teams Destination Imagination Coordinator Relationship Specialty Start Date End Date Ricci Parker MD [address] [place] [phone] PCP - General FAMILY PRACTICE 08/16/24
--- OUTSIDE RECORDS SUMMARY | 2024-12-15 18:21 | XMS_ITS | Encounter Summary ---
Author Organization [facility] Healthcare Address [address] [place] [id number] Care Team Providers Care Fountain Roller Assembler Name Role Phone Ricci Parker MD Primary Care Provider [phone] Reason for Visit * Reason Onset Date Comments Back Pain 12/15/2024 Encounter Details Date Type Department Care Team (Late st Contact Info) Description 12/15/2024 Nurse Triage [facility] Family Medicine at [address] [place] [address] Ricci Parker MD [address] [place] [address] [id number] Social History Tobacco Use Types [...] and Family Twice a week 05/10/2019 Attends [employer]ist Services More than 4 times per year [...] on file Legal Sex Female 2:16 AM MARKETING ANALYTICS LEAD Gender Identity Not on file Sexual Orientation Not on file documented as of this encounter Miscellaneous Notes * Telephone Encounter - Susan Cox RN - 12/15/2024 2:37 PM CST Patient instructed to go to ER. Patient agreeable. ETING ANALYTICS LEAD * Telephone Encounter - Anabell Leggett RN - 12/15/2024 1:21 PM CST Pt complaining of lower back pain; pt fell down stairs on Wednesday. Pt had panty hose on and slipped down stairs before [employer] [employer] on Wednesday. Has been 4 days and [...] medicine and CARE ADVICE Protocols used: Back [id number] ETING ANALYTICS LEAD * Telephone Encounter - Anabell Leggett RN - 12/15/2024 1:19 PM CST Regarding: Fall, severe pain lower back ----- Message from Katy Jimenez sent at 12/15/2024 1:17 PM MARKETING ANALYTICS LEAD ----- Symptom Based Call Chief Complaint(s): Fall, [...] message need to be routed? Yes-Action Needed ETING ANALYTICS LEAD documented in this encounter Plan of Treatment Not on file documented as of this encounter Visit Diagnoses Not on filedocumented in this encounter Care Teams Fountain Roller Assembler Relationship Specialty Start Date End Date Ricci Parker MD PCP - General Family Medicine 01/01/22 documented as of this encounter
--- OUTSIDE RECORDS SUMMARY | 2024-12-15 18:21 | XMS_ITS | Referral Summary ---
Author Organization [facility] Address [address] [place] [address] Care Team Providers Care Mangle Roll Operator Name Role Phone Ricci Parker MD Primary Care Provider Encounters Date Type Department Care Team Description 12/15/2024 Nurse Triage [facility] Medical [facility] Family Medicine at [address] [place] [phone] Ricci Parker MD 12/11/2024 Telephone [facility] Family Medicine at [address] [place] [phone] Ricci Parker MD Med Refill 12/08/2024 Telephone [facility] Family Medicine at [address] [place] [phone] Ricci Parker MD 12/07/2024 8:07 AM LIFE CLAIMS EXAMINER - 12/07/2024 11:59 PM LIFE CLAIMS EXAMINER Hospital Encounter [facility] Medical Office Bldg [address] [place] [address] Type 2 diabetes mellitus with hyperglycemia, with long-term current use of insulin (HCC) Discharge Disposition: Discharge to home or self care 12/07/2024 2:45 PM LIFE CLAIMS EXAMINER Office Visit [facility] Medical [facility] Family Medicine at [address] [place] [address] Ricci Parker MD Type 2 diabetes mellitus with hyperglycemia, with long-term current use of insulin (HCC) (Primary Dx); Essential hypertension; Mixed hyperlipidemia 11/17/2024 Telephone [facility] Family Medicine at [address] [place] [phone] Ricci Parker MD Med Refill 11/02/2024 Telephone [facility] Family Medicine at [address] [place] [address] Ricci Praker MD Medication Request 10/24/2024 Orders Only [facility] Gastroenterology at [address] [place] [phone] Willie Matthews MD Screening for colon cancer (Primary Dx) 10/05/2024 Telephone [facility] Family Medicine at [address] [place] [phone] Ricci Parker MD Med Refill 10/03/2024 Orders Only [facility] Gastroenterology at [address] [place] [phone] Willie Matthews MD 10/03/2024 Orders Only [facility] Gastroenterology at [address] [place] [phone] Willie Matthews MD Colon cancer screening (Primary Dx) 09/22/2024 9:56 AM CDT - 09/22/2024 11:59 PM CDT Hospital Encounter [facility] Nutrition and Diabetic Education 1 [facility] Room [address] [address] Rhoda Mcfadden, RN Type 2 diabetes mellitus with hyperglycemia, with long-term current use of insulin (HCC) Discharge Disposition: Discharge to home or self care 09/20/2024 10:00 AM CDT Clinical Support [facility] Medical [facility] Family Medicine at [address] [phone] Essential hypertension (Primary Dx) from Last 3 [...] hyperglycemia, with long-term current use of insulin ([facility]) Use to inject 1 time daily as [...] hyperglycemia, without long-term current use of insulin ([facility]) Inject 28 Units under the skin nightly 15 mL 5 4 Active rosuvastatin (CRESTOR) 5 mg tablet Take 1 tablet (5 mg total) by mouth daily 30 tablet 11 5 12/07/19 26 Active dapagliflozin propanediol (FARXIGA) 10 mg tabletIndication s:Type 2 diabetes mellitus with hyperglycemia, with long-term current use of insulin ([facility]) Take 1 tablet (10 mg total) by mouth daily 90 tablet 3 5 Active blood-glucose sensor deviceIndication s:Type 2 diabetes mellitus with hyperglycemia, without long-term current use of insulin ([facility]) Check blood sugar 3-4 times daily, change every 15 days 2 each 11 5 Active insulin glargine 100 unit/mL (3 mL) pen for injectionIndicat ions:Type 2 diabetes mellitus with hyperglycemia, without long-term current use of insulin ([facility]) Inject 28 Units under the skin nightly 15 mL 5 4 11/17/20 24 Discontin ued(Reord er) dapagliflozin propanediol (FARXIGA) 10 mg tabletIndication s:Type 2 diabetes mellitus with hyperglycemia, with long-term current use of insulin ([facility]) Take 1 tablet (10 mg total) by mouth daily 90 tablet 3 4 12/13/19 25 Discontin ued(Reord er) blood-glucose sensor device As directed 1 each 2 5 12/13/19 25 Discontin ued(Alter sekou therapy) blood-glucose sensor deviceIndication s:Type 2 diabetes mellitus with hyperglycemia, without long-term current use of insulin ([facility]) Check blood sugar 3-4 times daily change [...] answer Assessment & Plan (12/22/2023 9:33 AM LIFE CLAIMS EXAMINER): This is a chronic condition which is [...] oz) Discussed starting CHIP program Refer to conservation educator as well Assessment & Plan (12/22/2023 9:32 AM LIFE CLAIMS EXAMINER): This is a chronic condition which is improving 5 lb weight loss since last office visit Encouraged healthy eating and exercise Assessment & Plan (11/04/2023 2:18 PM LIFE CLAIMS EXAMINER): This is a chronic condition which is [...] daily Continue daily glucose checks Refer to conservation educator Assessment & Plan (08/17/2024 11:29 AM CDT): Severe exacerbation POC 430 Advise ER d/t symptomatic and concern for DKA and hypertensive crisis Pt feels unable to safely get to ER on her own. Pt is going to have sister take her to ER. Offered 911 services but pt would prefer sister transport. Sister 10min ETA. Assessment & Plan (12/22/2023 9:31 AM LIFE CLAIMS EXAMINER): This is a chronic condition which is [...] rosuvastatin Assessment & Plan (11/04/2023 2:15 PM LIFE CLAIMS EXAMINER): This is a chronic condition which is [...] sugar 2 times a day. Continuously with Kinveystyle angela 3 sensor. Encouraged annual eye exam. [...] rosuvastatin Assessment & Plan (12/31/2022 10:49 AM LIFE CLAIMS EXAMINER): This is a chronic condition which is [...] rosuvastatin Assessment & Plan (11/18/2022 1:10 PM LIFE CLAIMS EXAMINER): This is a chronic condition which is [...] 05/16/2024 Assessment & Plan (12/22/2023 9:32 AM LIFE CLAIMS EXAMINER): This is a chronic condition which is not at goal of LDL less than 70 Continue rosuvastatin Encouraged to eat healthy, include fresh fruits and vegetables daily and avoid eating fried foods more than once per week. Encouraged to take medications as prescribed. Assessment & Plan (11/04/2023 2:15 PM LIFE CLAIMS EXAMINER): This is a chronic condition which is [...] prescribed. Assessment & Plan (12/31/2022 9:58 AM LIFE CLAIMS EXAMINER): This is a chronic condition which is not at goal of LDL less than 70 Continue rosuvastatin Encouraged to eat healthy, include fresh fruits and vegetables daily and avoid eating fried foods more than once per week. Encouraged to take medications as prescribed. Assessment & Plan (11/18/2022 1:11 PM LIFE CLAIMS EXAMINER): This is a chronic condition which is [...] and Family Twice a week 05/10/2019 Attends Shinto Services More than 4 times per year [...] on file Legal Sex Female 2:16 AM LIFE CLAIMS EXAMINER Gender Identity Not on file Sexual Orientation Not on file Last Filed Vital Signs Vital Sign Reading Time Taken Comments Blood Pressure 164/92 12/07/2024 2:50 PM LIFE CLAIMS EXAMINER Pulse 94 12/07/2024 2:50 PM LIFE CLAIMS EXAMINER Temperature 36.9 ??C (98.5 ??F) 12/07/2024 2:50 PM CS T Respiratory Rate 18 09/06/2024 8:14 AM CDT Oxygen Saturation 97% 12/07/2024 2:50 PM LIFE CLAIMS EXAMINER Inhaled Oxygen Concentration - - Weight 117.9 kg (260 lb) 12/07/2024 2:50 PM LIFE CLAIMS EXAMINER Height 182.9 cm (6') 12/07/2024 2:50 PM LIFE CLAIMS EXAMINER Body Mass Index 35.26 12/07/2024 2:50 PM LIFE CLAIMS EXAMINER Plan of Treatment Not on file Procedures Procedure Name Priority Date/Time Associated Diagnosis Comments POCT HEMOGLOBIN A1C Routine 12/07/2024 4 :19 PM LIFE CLAIMS EXAMINER Type 2 diabetes mellitus with hyperglycemia, with long-term current use of insulin (HCC) ALBUMIN CREATININE RATIO, URINE Routine 12/07/2024 2:22 PM LIFE CLAIMS EXAMINER Type 2 diabetes mellitus with hyperglycemia, with long-term current use of insulin (HCC) EGFR STAT 08/17/2024 12:42 PM CDT LIPID PANEL Routine 10/06/2023 9:26 AM LIFE CLAIMS EXAMINER Type 2 diabetes mellitus with hyperglycemia, without long-term current use of insulin (CMS/HCC) (HCC) DIABETIC EYE EXAM Routine 05/18/2023 DIAGNOSTIC MAMMOGRAM BILATERAL W MITCH Schedule Routine, Read Routine (OP Routine) 10/02/2022 Breast pain, left HM PAP SMEAR WITH HPV Routine 02/13/2019 COLONOSCOPY Routine 01/06/2018 from Last 3 Months or Most Recently Relevant to Health Maintenance Results * POCT hemoglobin A1c (12/07/2024 4:19 PM LIFE CLAIMS EXAMINER) Hemoglobin A1C, POC 12.3 4.0 - 5.6 % Blood 12/07/2024 4:19 PM LIFE CLAIMS EXAMINER Ricci Parker MD POINT OF CARE TEST ORDERABLES Final Result * Albumin Creatinine Ratio, Urine (12/07/2024 2:22 PM LIFE CLAIMS EXAMINER) Albumin Ur 30.1 mg/L Comment: Interpretive Data No reference range established. Current interpretive data was last revised 2019. Creatinine Ur 143.0 mg/dL [facility] Comment: Interpretive Data No reference range established. Current interpretive data was last revised 2019. Albumin Creatinine Ratio, Ur 21 1 - 29 mg/g [facility] Urine 12/07/2024 2:22 PM LIFE CLAIMS EXAMINER 12/08/2024 12:35 PM LIFE CLAIMS EXAMINER us Ricci Parker MD LAB URINE ORDERABLES Final Re sult [facility] [address] [facility] Department [place] [address] * eGFR (08/17/2024 12:42 PM CDT) eGFR [...] BLOOD ORDERABLES Final Result Performing Organization Address City/[facility]/ZIP Co de Phone Number [facility] [address] [facility] Department [place] [address] * (ABNORMAL) Lipid panel (10/06/2023 9:26 AM LIFE CLAIMS EXAMINER) Pathologist [facility] Cholesterol 215(H) <200 mg/dL [facility] [...] Friedewald equation in the estimation of LDL-C. Segrio SS et al. MIRANDA. 2013;310(19): 7327-4485 (http://education.[employer]/faq/YHQ813) Chol/HDL ratio 3.6 <5.0 (calc) [facility] Non-HDL, (LDL+VLDL) 156(H) <130 mg/dL (calc) [facility] Comment: For patients with diabetes plus 1 major ASCVD risk factor, treating to a non-HDL-C goal of <100 mg/dL (LDL-C of <70 mg/dL) is considered a therapeutic option. Blood 10/06/2023 9:26 AM LIFE CLAIMS EXAMINER 10/06/2023 9:28 AM LIFE CLAIMS EXAMINER Narrative [facility] - 10/08/2023 1:26 AM LIFE CLAIMS EXAMINER FASTING:YES FASTING: YES us Jerica Burleson NP LAB BLOOD ORDERABLES Final Resu lt [facility] [address] [address] [address] * (ABNORMAL) Diabetic Eye Exam (05/18/2023) 05/18/2023 Historical Provider HEALTH MAINTENANCE Final Result * Diagnostic Mammogram Bilateral W Mitch (10/02/2022) Anatomical Region Laterality Modality Breast Bilateral Mammography 10/02/2022 Janett Carreon CREDIT SPECIALIST IMG MAMMO PROCEDURES Final Result * HM PAP SMEAR WITH HPV (02/13/2019) Historical Provider HEALTH MAINTENANCE Final Result * Colonoscopy (01/06/2018) Anatomical Region Laterality Modality Other Historical Provider ENDOSCOPY PROCEDURES Lauren l Result from Last 3 Months or Most Recently Relevant to Health Maintenance Insurance [facility] Care Teams Mangle Roll Operator Relationship Specialty Start Date End Date Ricci Parker MD PCP - General Family Medicine 01/01/22
--- OUTSIDE RECORDS SUMMARY | 2024-12-15 18:21 | XMS_ITS | Clinical Summary ---
Author Organization [facility] Address [address] [place] [address] Care Team Providers Care Furnace Attendant Name Role Phone Ricci Parker MD Primary Care Provider [phone] Allergies Active Allergy Reactions Criticality Noted Date [...] answer Assessment & Plan (12/22/2023 9:33 AM ACTUARIAL MANAGER): This is a chronic condition which is [...] oz) Discussed starting CHIP program Refer to in service educator as well Assessment & Plan (12/22/2023 9:32 AM ACTUARIAL MANAGER): This is a chronic condition which is improving 5 lb weight loss since last office visit Encouraged healthy eating and exercise Assessment & Plan (11/04/2023 2:18 PM ACTUARIAL MANAGER): This is a chronic condition which is [...] daily Continue daily glucose checks Refer to in service educator Assessment & Plan (08/17/2024 11:29 AM CDT): Severe exacerbation POC 430 Advise ER d/t symptomatic and concern for DKA and hypertensive crisis Pt feels unable to safely get to ER on her own. Pt is going to have sister take her to ER. Offered 911 services but pt would prefer sister transport. Sister 10min ETA. Assessment & Plan (12/22/2023 9:31 AM ACTUARIAL MANAGER): This is a chronic condition which is [...] rosuvastatin Assessment & Plan (11/04/2023 2:15 PM ACTUARIAL MANAGER): This is a chronic condition which is [...] rosuvastatin Assessment & Plan (12/31/2022 10:49 AM ACTUARIAL MANAGER): This is a chronic condition which is [...] rosuvastatin Assessment & Plan (11/18/2022 1:10 PM ACTUARIAL MANAGER): This is a chronic condition which is [...] 05/16/2024 Assessment & Plan (12/22/2023 9:32 AM ACTUARIAL MANAGER): This is a chronic condition which is not at goal of LDL less than 70 Continue rosuvastatin Encouraged to eat healthy, include fresh fruits and vegetables daily and avoid eating fried foods more than once per week. Encouraged to take medications as prescribed. Assessment & Plan (11/04/2023 2:15 PM ACTUARIAL MANAGER): This is a chronic condition which is [...] prescribed. Assessment & Plan (12/31/2022 9:58 AM ACTUARIAL MANAGER): This is a chronic condition which is not at goal of LDL less than 70 Continue rosuvastatin Encouraged to eat healthy, include fresh fruits and vegetables daily and avoid eating fried foods more than once per week. Encouraged to take medications as prescribed. Assessment & Plan (11/18/2022 1:11 PM ACTUARIAL MANAGER): This is a chronic condition which is not at goal of LDL less than 70 Continue rosuvastatin Encouraged to eat healthy, include fresh fruits and vegetables daily and avoid eating fried foods more than once per week. Encouraged to take medications as prescribed. Encounters Date Type Department Care Team Description 12/15/2024 Nurse Triage [facility] Family Medicine at [address] [phone] Ricci Parker MD 12/11/2024 Telephone [facility] Family Medicine at [address] [phone] Ricci Parker MD Med Refill 12/08/2024 Telephone [facility] Family Medicine at [address] [phone] Ricci Parker MD 12/07/2024 2:45 PM ACTUARIAL MANAGER Office Visit [facility] Family Medicine at [address] [phone] Ricci Parker MD Type 2 diabetes mellitus with hyperglycemia, with long-term current use of insulin (HCC) (Primary Dx); Essential hypertension; Mixed hyperlipidemia 12/07/2024 8:07 AM ACTUARIAL MANAGER - 12/07/2024 11:59 PM ACTUARIAL MANAGER Hospital Encounter [facility] Medical Office Bldg [address] [place] [phone] Type 2 diabetes mellitus with hyperglycemia, with long-term current use of insulin (HCC) Discharge Disposition: Discharge to home or self care 11/17/2024 Telephone [facility] Family Medicine at [address] [place] [phone] Ricci Parker MD Med Refill 11/02/2024 Telephone [facility] Family Medicine at [address] [phone] Ricci Parker MD Medication Request 10/24/2024 Orders Only [facility] Medical [facility] Gastroenterology at [address] [phone] Willie Matthews MD Screening for colon cancer (Primary Dx) 10/05/2024 Telephone [facility] Family Medicine at [address] [phone] Ricci Parker MD Med Refill 10/03/2024 Orders Only [facility] Gastroenterology at [address] [phone] Willie Matthews MD 10/03/2024 Orders Only [facility] Gastroenterology at [address] [phone] Willie Matthews MD Colon cancer screening (Primary Dx) 09/22/2024 9:56 AM CDT - 09/22/2024 11:59 PM CDT Hospital Encounter [facility] Nutrition and Diabetic Education [address] [facility] Emergency Room Room [address] [address] Rhoda Mcfadden, RN Type 2 diabetes mellitus with hyperglycemia, with long-term current use of insulin (HCC) Discharge Disposition: Discharge to home or self care 09/20/2024 10:00 AM CDT Clinical Support [facility] Medical [facility] Family Medicine at [address] [phone] Essential hypertension (Primary Dx) from Last 3 [...] and Family Twice a week 05/10/2019 Attends Zoroastrianism Services More than 4 times per year [...] on file Legal Sex Female 2:16 AM ACTUARIAL MANAGER Gender Identity Not on file Sexual Orientation Not on file Obstetrics History Para Term AB IAB SAB Ectopic Multiple Livin g Live Births 1 0 1 1 Date Outcome GA Total Labor Labor/2nd/3rd Weight Sex Type Anes PTL Anna A1 A5 Name Clin 002 F CS-Uns pec Last Filed Vital Signs Vital Sign Reading Time Taken Comments Blood Pressure 164/92 12/07/2024 2:50 PM ACTUARIAL MANAGER Pulse 94 12/07/2024 2:50 PM ACTUARIAL MANAGER Temperature 36.9 ??C (98.5 ??F) 12/07/2024 2:50 PM CS T Respiratory Rate 18 09/06/2024 8:14 AM CDT Oxygen Saturation 97% 12/07/2024 2:50 PM ACTUARIAL MANAGER Inhaled Oxygen Concentration - - Weight 117.9 kg (260 lb) 12/07/2024 2:50 PM ACTUARIAL MANAGER Height 182.9 cm (6') 12/07/2024 2:50 PM ACTUARIAL MANAGER Body Mass Index 35.26 12/07/2024 2:50 PM ACTUARIAL MANAGER Plan of Treatment Health Maintenance Due Date [...] HEMOGLOBIN A1C Routine 12/07/2024 4 :19 PM ACTUARIAL MANAGER Type 2 diabetes mellitus with hyperglycemia, with long-term current use of insulin (HCC) ALBUMIN CREATININE RATIO, URINE Routine 12/07/2024 2:22 PM ACTUARIAL MANAGER Type 2 diabetes mellitus with hyperglycemia, with long-term current use of insulin (HCC) EGFR STAT 08/17/2024 12:42 PM CDT LIPID PANEL Routine 10/06/2023 9:26 AM ACTUARIAL MANAGER Type 2 diabetes mellitus with hyperglycemia, without long-term current use of insulin (CMS/HCC) (HCC) DIABETIC EYE EXAM Routine 05/18/2023 DIAGNOSTIC MAMMOGRAM BILATERAL W MITCH Schedule Routine, Read Routine (OP Routine) 10/02/2022 Breast pain, left HM PAP SMEAR WITH HPV Routine 02/13/2019 COLONOSCOPY Routine 01/06/2018 from Last 3 Months or Most Recently Relevant to Health Maintenance Results * POCT hemoglobin A1c (12/07/2024 4:19 PM ACTUARIAL MANAGER) Pathologist [facility] Hemoglobin A1C, POC 12.3 4.0 - 5.6 % Blood 12/07/2024 4:19 PM ACTUARIAL MANAGER Ricci Parker MD POINT OF CARE TEST ORDERABLES Final Result * Albumin Creatinine Ratio, Urine (12/07/2024 2:22 PM ACTUARIAL MANAGER) Pathologist [facility] Albumin Ur 30.1 mg/L Comment: Interpretive Data No reference range established. Current interpretive data was last revised 2019. Creatinine Ur 143.0 mg/dL [facility] Comment: Interpretive Data No reference range established. Current interpretive data was last revised 2019. Albumin Creatinine Ratio, Ur 21 1 - 29 mg/g [facility] Urine 12/07/2024 2:22 PM ACTUARIAL MANAGER 12/08/2024 12:35 PM ACTUARIAL MANAGER Ricci Parker MD LAB URINE ORDERABLES Final Re sult [facility] [address] [facility] Department [place] [address] * eGFR (08/17/2024 12:42 PM CDT) Pathologist [facility] eGFR >90 >=60 mL/min/1. 73 m2 Comment: [...] BLOOD ORDERABLES Final Result Performing Organization Address City/State/[facility] Co ar Phone Number TNSUL[place] [address] [facility] Department [place] [address] * (ABNORMAL) Lipid panel (10/06/2023 9:26 AM ACTUARIAL MANAGER) Pathologist [facility] Cholesterol 215(H) <200 mg/dL [facility] [...] LDL-C. Sergio GUDINO et al. MIRANDA. 2013;310(19): 1568-9468 (http://education.[employer]/faq/QZT528) Chol/HDL ratio 3.6 <5.0 (calc) [facility] Non-HDL, (LDL+VLDL) 156(H) <130 mg/dL (calc) [facility] Comment: For patients with diabetes plus 1 major ASCVD risk factor, treating to a non-HDL-C goal of <100 mg/dL (LDL-C of <70 mg/dL) is considered a therapeutic option. Blood 10/06/2023 9:26 AM ACTUARIAL MANAGER 10/06/2023 9:28 AM ACTUARIAL MANAGER Narrative [facility] - 10/08/2023 1:26 AM ACTUARIAL MANAGER FASTING:YES FASTING: YES Jerica Burleson NP LAB BLOOD ORDERABLES Final Resu lt [facility] [address] [place] [address] * (ABNORMAL) Diabetic Eye Exam (05/18/2023) 05/18/2023 [...] Most Recently Relevant to Health Maintenance Insurance [facility] Care Teams Furnace Attendant Relationship Specialty Start Date End Date Ricci Parker MD PCP - General Family Medicine 01/01/22
[2024-12-15 19:47] LABS: Add Urine Microscopic? YES; Appearance Urine Cloudy (Clear); Bacteria Urine 1+ /hpf; Bilirubin Urine Negative (Negative); Blood Urine Negative (Negative); Color Urine Dark Yellow (Yellow); Glucose Urine UA Trace mg/dL (Negative); Ketones Urine Trace mg/dL (Negative); Leukocyte Esterase Ur Trace LEU/UL (Negative); Nitrate Urine Negative (Negative); Protein Urine 1+ mg/dL (Negative); RBC Urine 0-2 /hpf (0-2); Specific Grav Ur 1.031 (1.001-1.035); Squamous Epithelial Cell Urine Moderate /hpf (Few); pH Urine 5.5 (5.0-9.0)
[2024-12-15 20:13] VITALS: BP 149/80; PULSE 68; RESP 18; O2SAT 100
== END 2024-12-15 21:02 | disposition home or self-care (01) ==
PROVIDERS: Registered Nurse; Emergency Provider Physician Assistant; PCP Family Medicine
DX: S39.012A Strain of muscle, fascia and tendon of lower back, initial encounter (principal); S29.012A Strain of muscle and tendon of back wall of thorax, initial encounter; R82.998 Other abnormal findings in urine; I10 Essential (primary) hypertension; E11.9 Type 2 diabetes mellitus without complications; E78.2 Mixed hyperlipidemia; Z90.49 Acquired absence of other specified parts of digestive tract; Z79.84 Long term (current) use of oral hypoglycemic drugs; W10.9XXA Fall (on) (from) unspecified stairs and steps, initial encounter
CPT/HCPCS: 72125; 72128; 72131; 73502; 81001; 96372; 99284; J1885

== ENCOUNTER 2025-06-04 09:00 | Outpatient (CLI) | payer OTHER, SELFPAY ==
--- NOTE | ~2025-06-04 | MM_ITS ---
EXAMINATION: MM screening yohana BI w yu HISTORY: Screening TECHNIQUE: Craniocaudal and mediolateral oblique 3-D tomosynthesis images were obtained and synthetic 2-D images were generated. CAD analysis was submitted and interpreted. COMPARISON: 10/02/2022 BREAST PARENCHYMAL COMPOSITION: Not dense: There are scattered areas of fibroglandular density. FINDINGS: There is no evidence of suspicious mass, calcification, or architectural distortion to sugg est malignancy in either breast. There has been no suspicious interval change. IMPRESSION: 1. No mammographic evidence of malignancy. 2. Recommend routine screening mammography in one year. BI-RADS Category 1: Negative Reviewed, dictated and finalized at location B.
--- OUTSIDE RECORDS SUMMARY | 2025-06-04 09:08 | XMS_ITS | Clinical Summary ---
Author Organization [facility] Address [facility] [place] [address] Care Team Providers Care [employer] Officer Name Role Phone Ricci Parker MD Primary Care Provider [phone] Allergies Active Allergy Reactions Criticality Noted Date [...] Information Value Date Recorded Sex Assigned at Female 01/15/2025 9:25 AM [employer]IE [employer] PERFORMER Legal Sex Female 6:47 PM CDT Gender Identity Not on file Sexual Orientation Not on file Last Filed Vital Signs Vital Sign Reading Time Taken Comments Blood Pressure 179/97 01/15/2025 11:16 AM [employer]IE ST[employer] PERFORMER Pulse 83 01/15/2025 11:16 AM [employer]IE [employer] PERFORMER Temperature 36.2 C (97.2 F) 01/15/2025 9:13 AM [employer]OVIE [employer]T PERFORMER Respiratory Rate 18 01/15/2025 11:1 6 AM MOVIE ST[employer]T PERFORMER Oxygen Saturation 98% 01/15/2025 11: 16 AM MOVIE ST[employer] PERFORMER Inhaled Oxygen Concentration - - Weight 118.6 kg (261 lb 7.5 oz) 01/15/2025 9:13 AM MOVIE ST[employer] PERFORMER Height 182.9 cm (6') 01/15/2025 9:13 AM MOVIE ST[employer]T PERFORMER Body Mass Index 35.46 01/15/2025 9:13 AM MOVIE STUNT PERFORMER Plan of Treatment Health Maintenance Due Date Last Done Comments Cervical Cancer Screening Pap Smear (Age 30 to 64) Every 3 Years 1964 Colorectal Cancer Screening Colonoscopy (10 Years) 1964 Kidney Health Evaluation 1964 Lipid Panel 1964 Annual Physical 1967 Diabetes: Retinopathy Eye Exam 1982 Hepatitis C 1982 DTaP, Tdap and Td Vaccines (1 - Tdap) 1983 Pneumococcal Vaccine: 50+ Years (1 of 2 - PCV) 1983 Cervical Cancer Screening Pap with HPV Testing (Age 30 to 64) Every 5 Years 1994 Cervical Cancer Screening with HPV 1994 Zoster Vaccines (1 of 2) 2014 COVID-19 Vaccine (3 - season) 2024 03/08/2021, 02/15/2021 Mammogram Screening 10/02/2024 10/02/2022, 3 Hemoglobin A1C 11/16/2024 08/17/2024, 02/20, 09/02/2022, Additional history exists RSV Immunization or 60+ Years (1 - 1-dose 75+ series) 2039 Meningococcal B Vaccine Aged Out No l onger eligible based on patient's age to complete this topic Meningococcal Vaccine Aged Out No valorie leonard eligible based on patient's age to complete this topic RSV Immunizations Under 20 Months Aged Out No longer eligible based on patient's age to complete this topic Insurance [employer] Care Teams [employer] Officer Relationship Specialty Start Date End Date Ricci Parker MD [address] [place] [phone] PCP - General FAMILY PRACTICE 08/16/24
== END 2025-06-04 09:01 | disposition home or self-care (01) ==
LOC: ANHIMG 09:01
PROVIDERS: PCP Family Medicine; Visit Provider Obstetrics & Gynecology
DX: Z12.31 Encounter for screening mammogram for malignant neoplasm of breast (principal)
CPT/HCPCS: 77063; 77067

== ENCOUNTER 2025-10-30 15:57 | Emergency (ER) | payer OTHER, SELFPAY ==
--- NOTE | 2025-10-30 16:03 | ED.GENADULT ---
HPI - General Adult General Chief complaint: Back Pain/Injury Stated complaint: BACK/KNEE PAIN Time Seen by Provider: 10/30/25 16:07 Source: patient, RN notes reviewed and old records reviewed Mode of arrival: ambulatory Limitations: no limitations History of Present Illness HPI narrative: 60-year-old female presents to the [facility] with bilateral knee pain and low lumbar back pain for 1 week. States that she slipped on ice and fell a week ago yesterday. Patient denies any loss retention of bowel or bladder. No numbness or tingling in extremities. Pain is only when she changes positions. States that the 1st day it happened she did take a Tylenol. Also took 1 Tylenol on day 3. No other treatment prior to arrival. Related Data Home Medications ?Medication ?Instructions ?Recorded ?Confirmed ?Last Taken ?Type semaglutide 14 mg tablet (Rybelsus) 14 mg PO DAILY 03/31/23 05/31/24 Unknown History Allergies Allergy/AdvReac Type Severity Reaction Status Date / Time aspirin Allergy Mild VOMITING Verified 10/30/25 16:11 oxycodone Allergy Mild VOMITING Verified 10/30/25 16:11 propoxyphene Allergy Mild VOMITING Verified 10/30/25 16:11 maple surpy Allergy Severe Vomiting Uncoded 12/15/24 16:31 ASPERTENE Allergy Unknown MIGRAINE Uncoded 12/15/24 16:31 Review of Systems Review of Systems: All systems reviewed & are unremarkable except as noted in HPI and below Constitutional: Constitutional: Reports no additional constitutional complaints ENT: Reports system reviewed and no additional complaints, except as documented Cardiovascular: Cardiovascular: Reports no additional cardiovascular complaints, Denies chest pain and Denies dyspnea Respiratory: Respiratory: Reports no additional respiratory complaints, Denies chest congestion, Denies cough and Denies dyspnea Musculoskeletal: Musculoskeletal: Reports as per HPI Integumentary/Breasts: Skin/Breast: Reports system reviewed and no additional complaints, except as docu PMFSH Past Medical History Medical History Mixed hyperlipidemia HTN (hypertension), benign Hepatic steatosis Diabetes mellitus Surgical History Surgical History History of hysteroscopy fibroids removed Delivery by section History of cholecystectomy History of colonoscopy Family History Family History Sibling Family history of malignant neoplasm of breast in first degree relative Hypertension, Onset Age: 59 Family history of thoracic aortic aneurysm, Onset Age: 59 Patient's brother is , Onset Age: 59 Mother Hypertension Family history of cardiovascular disease, Onset Age: 87 Father Malignant neoplasm of prostate Other Cerebrovascular accident Diabetes mellitus Family history of arthritis Family history of malignant neoplasm Social History Social History Smoking status: Never smoker Second hand tobacco smoke exposure: No Alcohol intake: never Substance use: never Substance use type: does not use Living arrangements: with family Occupation/Education: occupation Gender identity (if verbalized by the patient): Female Sexual Orientation (if Verbalized by the Patient): Straight or Heterosexual Comments At the time of my signature, I reviewed and agree with the nursing past medical, surgical, social, and family history. There is no relevant family history pertinent to the patient complaint. Exam Const: General: cooperative, healthy appearing, comfortable, no acute distress, well developed, alert and well nourished Nutritional Appearance: well nourished Orientation/consciousness: patient oriented x3 Limitations: no limitations HENMT: Head: normal to inspection Eyes: General: appearance normal, both eyes and all related structures Alignment and Position: alignment normal Neck: Neck: normal visual inspection, full ROM, no lymphadenopathy and no meningeal signs Chest: Chest palpation & inspection: normal inspection of the chest Resp: Effort & Inspection: normal respiratory effort and able to speak in complete sentences Auscultation: clear to auscultation bilaterally, no crackles, no rales, no rhonchi and no wheezes Cardio: Rate: regular rate GI: GI Palp: No abdominal tenderness Back/Spine/Pelvis: Back: no CVA tenderness and back tenderness ( Low lumbar muscular) Thoracic/Lumbar Spine: paraspinal muscle tenderness bilaterally in the lower lumbar, No thoracic spinal tenderness and No lumbar spinal tenderness Skin: General skin exam: normal color and no rashes or lesions noted Neuro: General: patient oriented x3, gait normal, moves all extremities and no meningeal signs Cognition (Neuro): normal cognition Speech: normal speech Gait exam (Neuro): Normal gait present Extrem: General: normal to inspection, full ROM, capillary refill normal and normal gait Right lower extremity: knee Details: tenderness and normal ROM; no swelling Left lower extremity: knee Details: tenderness and normal ROM; no swelling Psych: Appearance: grossly normal and well kempt Mental Status: mental status grossly normal Speech and movement: Normal speech and movement present and Clear speech present Affect: normal affect Attitude: cooperative Course Course Level of Care: Express Care Visit Vital Signs Vital signs: Vital Signs Temperature 96.4 F L 10/30/25 16:07 Pulse Rate 78 10/30/25 16:07 Respiratory Rate 16 10/30/25 16:07 Blood Pressure 186/106 H 10/30/25 16:07 Pulse Oximetry 100 10/30/25 16:07 Temperature 96.4 F L 10/30/25 16:07 Pulse Rate 78 10/30/25 16:07 Respiratory Rate 16 10/30/25 16:07 Blood Pressure 186/106 H 10/30/25 16:07 Pulse Oximetry 100 10/30/25 16:07 reviewed MDM MDM Narrative Medical decision making narrative: patient sitting in exam room. Patient is nontoxic, vitals stable. Except blood pressure elevated. Patient reports that she did take her blood pressure medication. Patient presents with low back pain 8 days ago slip and fall. No midline tenderness. No red flag symptoms. Offered to do an x-ray which she declined at this time. Also complaining of bilateral knee pain. No bruising or swelling noted. Offered to do x-rays however patient declined at this time. Patient is walking with a normal gait. Symptoms are worse when she changes position especially from sitting to standing and standing to sitting. Patient appropriate for outpatient treatment with close follow-up Discharge instructions reviewed with patient, as well as provided in writing per nursing staff. The instructions also include specific and strict return/GO TO THE ER as well as f/u information. All questions have been answered, and the patient deny any further questions with discharge and discharge plan. Some parts of this dictation were generated by voice recognition software and may contain typographical and/or grammatical inaccuracies. Differential Diagnosis Differential Diagnosis: Differential diagnostic considerations for back pain?include?herniated disc, sciatica, abscess, strain/sprain, discitis, myelitis, fracture, hematoma, cauda equina, osteomyelitis, metastatic and/or primary malignancy, renal colic, pyelonephritis, AAA.? Discharge Plan Discharge Clinical Impression: Low back pain, Acute bilateral knee pain, Fall Patient Disposition: Home Condition: Stable Instructions: Acute Low Back Pain (ED), Knee Pain (ED), Muscle Spasm (ED), Lower Back Exercises (ED) Additional Instructions: today your blood pressure was 186/106. it is recommended that you follow-up with your primary care provider to have this rechecked within 2 weeks. Take ibuprofen as directed to decrease inflammation and to help pain. Take Baclofen (muscle relaxer) as directed. Do not drink, drive, operate machinery, or do anything dangerous while taking this medication Exercise:Combine aerobic exercise, like walking or swimming, with specific exercises to keep the muscles in your back and abdomen strong and flexible. Proper Lifting:Be sure to lift heavy items with your legs, not your back. Do not bend over to pick something up. Keep your back straight and bend at your knees. Weight:Maintain a healthy weight. Being overweight puts added stress on your lower back. Avoid Smoking:Both the smoke and the nicotine cause your spine to age faster than normal. Proper Posture:Good posture is important for avoiding future problems. A therapist can teach you how to safely stand, sit, and lift. Use warm moist heat to help with pain. Using topical such as Biofreeze, Dread-Britton or Aspercreme can also help Follow up with Primary provider in 2-3 days, This may become a chronic condition and they will be the one to help manage your pain and order additional testing. Go to the nearest ER if you develop problems with bladder/bowel function, weakness or loss of feeling in one or both of your legs. Patient Language: Cambodian Prescriptions: New baclofen 10 mg tablet 10 mg PO TID PRN (Reason: muscle pain) Qty: 15 0RF lidocaine [Lidoderm] 5 % adhesive patch,medicated 1 patch topical DAILY Qty: 15 0RF Rx Instructions: leave on most painful area for up to 12 hrs No Action Rybelsus 14 mg tablet 14 mg PO DAILY clobetasol 0.05 % ointment 1 applic topical BID 14 Days Qty: 60 6RF Rx Instructions: apply topically to the vulva once daily for 6 weeks, then continue using 2-3x/week for the next month, then continue 1-4x/month thereafter (DME) blood-glucose meter [Jauntuch Verio Meter] Misc See Rx Instructions .Route Qty: 1 1RF Rx Instructions: Use as directed (Please dispense whatever machine is covered on insurance). (DME) lancets [OneTouch Delica Lancets] 33 gauge misc See Rx Instructions .Route Qty: 100 2RF Rx Instructions: Use up to twice daily as directed (Please dispense whatever is covered). (DME) OneTouch Ultra Blue Test Strip Strip See Rx Instructions .Route Qty: 100 2RF Rx Instructions: Use up to bid to test blood sugars (Please dispense whatever is covered). amlodipine 10 mg tablet See Rx Instructions .ROUTE .COMPLEX Qty: 90 0RF Dose Instruction: TAKE 1 TABLET BY MOUTH DAILY Rx Instructions: TAKE 1 TABLET BY MOUTH DAILY cyclobenzaprine 10 mg tablet 10 mg PO TID Qty: 21 0RF Follow-up/Referrals: Keith,Ricci Jimenez MD [Primary Care Provider, Unknown] - 1 Week Clinical Impression: Low back pain; Acute bilateral knee pain; Fall Stand Alone Forms: Work/School Release IP Time of Disposition: 16:17
[2025-10-30 16:07] VITALS: BP 186/106; PULSE 78; RESP 16; TEMP 35.8; O2SAT 100
== END 2025-10-30 16:24 | disposition home or self-care (01) ==
PROVIDERS: Emergency Provider Nurse Practitioner; PCP Family Medicine
DX: M54.50 Low back pain, unspecified (principal); M25.562 Pain in left knee; M25.561 Pain in right knee; W00.0XXA Fall on same level due to ice and snow, initial encounter; I10 Essential (primary) hypertension; E11.9 Type 2 diabetes mellitus without complications; Z79.84 Long term (current) use of oral hypoglycemic drugs; E78.2 Mixed hyperlipidemia; K76.0 Fatty (change of) liver, not elsewhere classified
CPT/HCPCS: 99213; G0463